=== PATIENT | female | born 1980 | race American Indian/Alaskan Native ===

== ENCOUNTER 2019-05-30 05:14 | Inpatient (IN) | payer OTHER ==
[2019-05-30] MEDS ORDERED: REGLAN IV ONE (05:26)
[2019-05-30] MEDS ORDERED: PEPCID IV ONE ×2 (05:26→14:25)
[2019-05-30] MEDS ORDERED: BICITRA PO ONE (05:26)
[2019-05-30] MEDS ORDERED: ANCEF/STERILE WATER 2 GM/20 ML 2 GM/20 ML SYRINGE IV NR ×2 (06:00→15:00)
[2019-05-30] MEDS ORDERED: PITOCin/NS 20 UNIT/1000ML DRIP 20 UNITS/1,000 ML BAG IV SCH ×2 (06:00→17:00)
[2019-05-30] MEDS: LACTATED RINGERS 1,000 ML IV SCH ×2 (06:35→13:25)
[2019-05-30 06:54] LABS: Basophils % (Auto) 0.5 % (0.0-1.8); Eosinophils # (Auto) 0.2 K/mm3 (0.0-0.4); Eosinophils % (Auto) 3.7 % (0.0-4.3); Hematocrit 34.1 % (30.3-42.9); Hemoglobin 11.6 gm/dl (10.1-14.3); Lymphocytes # (Auto) 0.8 K/mm3 (1.2-5.4); Mean Corpuscular HGB Conc 34 % (30-34); Mean Corpuscular Volume 92 fl (79-97); Monocytes # (Auto) 0.3 K/mm3 (0.0-0.8); Monocytes % (Auto) 7.1 % (0.0-7.3); Platelet Count 128 K/mm3 (140-440); Red Cell Distribution Width 15.6 % (13.2-15.2)
--- NOTE | 2019-05-30 09:00 | History and Physical Report ---
History of Present Illness Date of examination: 05/30/19 Date of admission: 05/30/19 05:14 Chief complaint: Scheduled C Section History of present illness: Pt is a 39yo BF EDC 06/04/19; EGA 39 2/7 weeks presents to L&D for a Repeat C Section with Bilateral Tubal Ligation. She received care at [facility] since 6 weeks and co-managed by [facility] for AMA and uterine fibroids. records are available and GBS is Negative. 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, herpes Social history: no significant social history, - Obstetrical History Expected Date of Delivery: 06/04/19 Actual Gestation: 39 Week(s) 2 Day(s) : 4 Medications and Allergies Allergies Allergy/AdvReac Type Severity Reaction Status Date / Time No Known Allergies Allergy Verified 05/30/19 05:26 Home Medications Medication Instructions Recorded Confirmed Last Taken Type Ferrous Sulfate [Feosol 325 MG tab] 1 tab PO BID 06/03/15 05/30/19 1 Day Ago History ~06/02/15 HYDROcodone/APAP 5-325 [Orchard 2 each PO Q6HR PRN 06/03/15 05/30/19 1 Day Ago History 5-325 mg TAB] ~06/02/15 Ibuprofen [Motrin 600 MG tab] 600 mg PO Q6HR PRN 06/03/15 05/30/19 1 Day Ago History ~06/02/15 Pnv,Calcium 72/Iron/Folic Acid 1 each PO DAILY 06/03/15 05/30/19 05/29/19 15:00 History [Pnv Plus Multivit Tab] Labetalol [Labetalol 100mg TAB] 100 mg PO BID #60 tablet 06/05/15 05/30/19 Unknown Rx Active Meds: Active Medications Oxytocin/Sodium Chloride (Pitocin/Ns 20 Unit/1000ml Drip) 20 units in 1,000 mls @ 0 mls/hr IV TITR VÍCTOR Lactated Ringer's (Lactated Ringers) 1,000 mls @ 2,250 mls/hr IV PREOP VÍCTOR Stop: 05/31/19 06:27 Last Admin: 05/30/19 06:35 Dose: 2,250 mls/hr Documented by: Review of Systems All systems: negative - Vital Signs Vital signs: Vital Signs Temp Pulse Resp BP 98.2 F 94 H 18 126/66 05/30/19 06:45 05/30/19 06:45 05/30/19 06:45 05/30/19 06:45 Temp Pulse Resp BP Pulse Ox 98.2 F 94 H 18 126/66 05/30/19 06:45 05/30/19 06:45 05/30/19 06:45 05/30/19 06:45 - Physical Exam Breasts: Positive: deferred Cardiovascular: Regular rate Lungs: Positive: Clear to auscultation Abdomen: Positive: normal appearance Genitourinary (Female): Positive: normal external genitalia Vagina: Positive: normal moisture Uterus: Positive: enlarged Extremities: Positive: normal - Obstetrical FHR: category 1 Uterine Contraction Monitor Mode: External Results Result Diagrams: 05/30/19 06:20 Abnormal lab results 05/30/19 Range/Units 06:20 RDW 15.6 H (13.2-15.2) % Plt Count 128 L (140-440) K/mm3 Lymph # 0.8 L (1.2-5.4) K/mm3 Seg Neutrophils % 71.7 H (40.0-70.0) % All other labs normal. Assessment and Plan - Patient Problems (1) 39 weeks gestation of Onset Date: 05/30/19 Current Visit: Yes Status: Acute Plan to address problem: A: IUP @ 39 2/7 weeks Previous C Section Desires permanent sterilization AMA P: Admit to L&D for Repeat C Section with Bilateral Tubal Ligation. (2) Previous section complicating Onset Date: 05/30/19 Current Visit: Yes Status: Chronic (3) Advanced maternal age (AMA) in Onset Date: 05/30/19 Current Visit: No Status: Chronic (4) Uterine fibroid in Onset Date: 05/30/19 Current Visit: Yes Status: Chronic
[2019-05-30] MEDS ORDERED: REGLAN ONE (14:24)
[2019-05-30] MEDS ORDERED: BICITRA ONE (14:24)
[2019-05-30] MEDS ORDERED: PEPCID ONE (14:24)
[2019-05-30] MEDS ORDERED: ANCEF/STERILE WATER 2 GM/20 ML 2 GM/20 ML SYRINGE IV ONE (14:25)
[2019-05-30] MEDS ORDERED: BENADRYL IV PRN (15:00)
[2019-05-30] MEDS ORDERED: ZOFRAN IV PRN (15:00)
[2019-05-30] MEDS ORDERED: DILAUDID IV PRN (15:00)
[2019-05-30] MEDS ORDERED: SODIUM CHLORIDE FLUSH SYRINGE 10 ML IV NR ×2 (15:00→17:00)
--- NOTE | 2019-05-30 15:02 | Anesthesia Consultation ---
Anesthesia Consult and Med Hx Date of service: 05/30/19 - Airway Anesthetic Teeth Evaluation: Good ROM Head & Neck: Adequate Mental/Hyoid Distance: Adequate Mallampati Class: Class II Intubation Access Assessment: Probably Good - Pulmonary Exam CTA: Yes - Cardiac Exam Cardiac Exam: RRR - Pre-Operative Health Status ASA Pre-Surgery Classification: ASA2 Proposed Anesthetic Plan: Spinal - Pulmonary Hx Smoking: No Hx Asthma: No Hx Respiratory Symptoms: No SOB: No COPD: No Home Oxygen Therapy: No Hx Pneumonia: No - Cardiovascular System Hx Hypertension: No Hx Coronary Artery Disease: No Hx Heart Attack/AMI: No Hx Angina: No Hx Percutaneous Transluminal Coronary Angioplasty (PTCA): No Hx Cardia Arrhythmia: No Hx Pacemaker: No Hx Internal Defibrillator: No Hx Valvular Heart Disease: No Hx Heart Murmur: No Hx Peripheral Vascular Disease: No - Central Nervous System Hx Neuromuscular Disorder: No Hx Seizures: No CVA: No Hx Back Pain: No Hx Psychiatric Problems: No - Gastrointestinal Hx Ulcer: No Hx Gastroesophageal Reflux Disease: No - Endocrine Hx Renal Disease: No Hx End Stage Renal Disease: No Hx Cirrhosis: No Hx Liver Disease: No Hx Insulin Dependent Diabetes: No Hx Non-Insulin Dependent Diabetes: No Hx Thyroid Disease: No Hx Hypothyroidism: No Hx Hyperthyroidism: No - Hematic Hx Anemia: Yes Hx Sickle Cell Disease: No - Other Systems Hx Alcohol Use: No Hx Substance Use: No Hx Cancer: No Hx Obesity: Yes
--- NOTE | 2019-05-30 15:02 | Anesthesia Day of Surgery ---
Anesthesia Day of Surgery - Day of Surgery Patient Examined: Yes Patient H&P Reviewed: Yes Patient is NPO: Yes Beta Blockers: No Cardiac Clearance: No Pulmonary Clearance: No Kade's Test: N/A
[2019-05-30] MEDS ORDERED: DEXMEDETOMIDINE IV ONE (15:12)
[2019-05-30] MEDS ORDERED: WATER FOR IRRIG STERILE IR ONE (15:50)
[2019-05-30] MEDS ORDERED: NACL 0.9% IR ONE (15:50)
[2019-05-30] MEDS ORDERED: ZOFRAN ONE (15:50)
[2019-05-30] MEDS ORDERED: LANSINOH TP PRN (16:42)
[2019-05-30] MEDS ORDERED: SENOKOT PO PRN (16:42)
[2019-05-30] MEDS ORDERED: NORCO 5/325 PO PRN (16:42)
[2019-05-30] MEDS ORDERED: TUCKS PAD TP PRN (16:42)
[2019-05-30] MEDS ORDERED: MYLICON PO PRN (16:42)
[2019-05-30] MEDS ORDERED: MILK OF MAGNESIA PO PRN (16:42)
[2019-05-30] MEDS ORDERED: TYLENOL PO PRN (16:42)
[2019-05-30] MEDS ORDERED: NARCAN 0.4 MG/1 ML IV PRN (16:42)
[2019-05-30] MEDS ORDERED: ANCEF/NS 1 GM/50 ML 1 GM/50 ML BAG IV SCH (17:00)
[2019-05-30] MEDS ORDERED: D5LR 1,000 ML IV SCH (17:00)
--- NOTE | 2019-05-30 17:02 | Operative Report ---
Operative Report Operative Report: Date of procedure: 05/30/2019 Pre-operative diagnosis: 1. Intrauterine at 39-2/7 weeks 2. Previ ous 3. Uterine fibroids in 4. Advanced maternal age 5. Desires permanent sterilization Post-operative diagnosis: Same Procedure name(s): 1. Repeat low transverse section 2. Bilateral tubal ligation Surgeon: Dakotah Quigley MD House Builder: None Anesthesia: Spinal anesthesia by Veronica Solorio CRNA EBL: 600 mL's Findings: A 3378 g female 8 at 1 minute 9 at 5 minutes. Clear amniotic fluid. Enlarged uterus with uterine fibroids and omental adhesions. Normal tubes and ovaries bilaterally. Procedure: After the patient was prepped and draped in usual sterile fashion, and after satisfactory level of epidural anesthesia was obtained, the skin knife was used to make a transverse skin incision through the previous skin scar. The incision was excised down to layer of the fascia, which was nicked in the midline and extended laterally using the Bovie cautery. The rectus muscles were dissected off the rectus fascia both superiorly and inferiorly. The rectus bellies in the midline, and the peritoneum was entered under direct visualization. The peritoneal incision was extended superiorly and inferiorly. A bladder flap was created and the bladder blade was then placed. The uterus was scored in a curvilinear linear fashion, entered in the midline revealing clear amniotic fluid. The infant's head was delivered onto the surgical field with aid of a vacuum, and the oropharynx and nasopharynx were bulb suctioned. The rest of the 's body was delivered, cord was doubly clamped and cut and the was handed to the waiting respiratory team. The placenta was manually removed from the uterus, and the uterus removed from its normal anatomical position. After gentle uterine lavage, the incision was inspected an d found to be without extensions. It was then closed in 2 layers using 0 Vicryl suture in a running interlocking fashion, the second layer imbricating the first. The uterus had a large pedunculated myoma at the right fundus, with extensive adhesions from the omentum. These adhesions were taken down and suture ligated. Attention was then turned to the tubal ligation. The right fallopian tube was grasped using a Denisse and the Filshie clip applied to the proximal portion of the tube. Next the left fallopian tube was grasped using a Denisse and the Filshie clip applied to the proximal portion of the tube. After good hemostasis was achieved, copious amounts or irrigation was performed, and the gutters were suctioned free of blood and blood clots. The Tisseel Sealant was sprayed across the uterine incision The uterus was then returned to its normal anatomical position, and after excellent hemostasis assured, the peritoneum was re-approximated using 3-0 Vicryl suture in a running interlocking fashion, and then the rectus muscles were re-approximated using 3-0 Vicryl suture in a [id number] configuration. The fascia was then re-approximated using 0 Vicryl suture in running interlocking fashion. The subcutaneous layer was made hemostatic using Bovie cautery, and the skin edges re-approximated using 3-0 Monocryl suture in a sub-cuticular fashion. Patient tolerated the pro cedure well was transported to recovery in stable condition.
--- NOTE | 2019-05-30 17:08 | Post Anesthesia Evaluation ---
- Post Anesthesia Evaluation Patient Participated: Yes Airway Patent: Yes Stable Respiratory Function: Yes Nausea/Vomiting: No Temp > 96.8F: Yes Pain Manageable: Yes Adequeate Hydration: Yes Anesthesia Complications: No Block Receding Appropriately: Yes Patient on Ventilator: No
[2019-05-30] MEDS: TORADOL IV PRN (19:15)
[2019-05-31] MEDS: DILAUDID IV PRN ×2 (00:27→05:19)
[2019-05-31 05:34] LABS: Hematocrit 29.3 % (30.3-42.9)
[2019-05-31] MEDS ORDERED: BOOSTRIX IM ONE (06:05)
[2019-05-31] MEDS ORDERED: ANCEF/NS 1 GM/50 ML 1 GM/50 ML BAG IV SCH (08:00)
[2019-05-31] MEDS: TORADOL IV PRN (08:10)
--- NOTE | 2019-05-31 08:10 | Progress Note ---
Assessment and Plan - Patient Problems (1) 39 weeks gestation of Onset Date: 05/30/19 Current Visit: Yes Status: Resolved (2) Previous section complicating Onset Date: 05/30/19 Current Visit: Yes Status: Resolved (3) Advanced maternal age (AMA) in Onset Date: 05/30/19 Current Visit: No Status: Chronic (4) Uterine fibroid in Onset Date: 05/30/19 Current Visit: Yes Status: Chronic (5) Status post Onset Date: 05/31/19 Current Visit: Yes Status: Resolved Plan to address problem: A: S/P Repeat C Section with BTL - POD #1 Doing well Asymptomatic anemia - stable P: Continue RPOC Anticipate discharge in 24-48hrs (6) Acute blood loss anemia Onset Date: 05/31/19 Current Visit: Yes Status: Resolved Subjective - Subjective Date of service: 05/31/19 Principal diagnosis: s/p Repeat C Section with BTL - POD #1 Interval history: Pt is feeling well without complaints. Bleeding has improved. Patient reports: appetite normal, voiding normally, pain well controlled, ambulating normally, no dizzy ambulation, no flatus, no nauseated : doing well, nursing well Objective - Vital Signs Latest vital signs: Vital Signs Temp Pulse Resp BP BP Pulse Ox 05/31/19 05:19 20 05/31/19 04:00 98.4 F 71 16 104/64 05/31/19 00:27 22 05/31/19 00:00 98.4 F 71 18 102/74 05/30/19 19:30 98.8 F 71 18 105/72 05/30/19 18:30 97.3 F L 87 18 127/77 98 05/30/19 18:00 97.8 F 57 L 18 109/68 100 05/30/19 17:45 54 L 19 111/67 100 05/30/19 17:30 60 17 105/65 99 05/30/19 17:15 61 14 113/67 99 05/30/19 17:10 56 L 16 111/70 99 05/30/19 17:05 74 16 121/69 99 05/30/19 17:00 97.6 F 76 21 88/46 99 05/30/19 10:27 96.8 F L 88 16 114/72 05/30/19 10:21 81 114/72 Intake and Output 05/30/19 05/31/19 05/31/19 22:59 06:59 14:59 Intake Total 1700 480 Output Total 400 1750 Balance 1300 -1270 Intake: IV 1400 Oral 480 Intake, Free Water 300 Output: Urine 400 1750 Indwelling Catheter 950 Void 800 Other: Total, Intake Amount 480 Total, Output Amount 400 # Voids Void 1 Estimated Blood Loss 500 - Exam Breasts: Present: deferred Abdomen: Present: normal appearance, soft Uterus: Present: normal, firm, fundal height below umbilicus Extremities: Present: normal Incision: Present: normal, dry, intact, dressed - Labs Labs: Abnormal lab results 05/31/19 Range/Units 05:06 Hgb 10.0 L (10.1-14.3) gm/dl Hct 29.3 L (30.3-42.9) % Laboratory Tests 05/30/19 05/30/19 05/30/19 06:20 06:20 06:20 WBC 4.7 RBC 3.70 Hgb 11.6 Hct 34.1 MCV 92 MCH 31 MCHC 34 RDW 15.6 H Plt Count 128 L Lymph % (Auto) 17.0 Stewart % (Auto) 7.1 Eos % (Auto) 3.7 Baso % (Auto) 0.5 Lymph # 0.8 L Stewart # 0.3 Eos # 0.2 Baso # 0.0 Seg Neutrophils % 71.7 H Seg Neutrophils # 3.4 RPR Nonreactive Blood Type B POSITIVE Antibody Screen Negative 05/31/19 05:06 WBC RBC Hgb 10.0 L Hct 29.3 L MCV MCH MCHC RDW Plt Count Lymph % (Auto) Stewart % (Auto) Eos % (Auto) Baso % (Auto) Lymph # Stewart # Eos # Baso # Seg Neutrophils % Seg Neutrophils # RPR Blood Type Antibody Screen
[2019-05-31] MEDS: PERCOCET 5/325 PO PRN ×2 (08:11→15:09)
[2019-05-31] MEDS ORDERED: PRENATAL VITAMIN PO SCH (10:00)
[2019-05-31] MEDS ORDERED: FEOSOL PO SCH (10:00)
[2019-05-31] MEDS ORDERED: M-M-R II VACCINE SUB-Q ONE (16:46)
[2019-05-31] MEDS: IBUPROFEN PO PRN (17:24)
[2019-06-01] MEDS: IBUPROFEN PO PRN ×3 (00:33→22:02)
[2019-06-01] MEDS: PERCOCET 5/325 PO PRN ×3 (00:33→16:17)
--- NOTE | 2019-06-01 07:39 | Progress Note ---
Assessment and Plan - Patient Problems (1) 39 weeks gestation of Onset Date: 05/30/19 Current Visit: Yes Status: Resolved (2) Previous section complicating Onset Date: 05/30/19 Current Visit: Yes Status: Resolved (3) Advanced maternal age (AMA) in Onset Date: 05/30/19 Current Visit: No Status: Chronic (4) Uterine fibroid in Onset Date: 05/30/19 Current Visit: Yes Status: Chronic (5) Status post Onset Date: 05/31/19 Current Visit: Yes Status: Resolved Plan to address problem: A: S/P Repeat C Section with BTL - POD #2 Doing well Asymptomatic anemia - stable P: May go home today. (6) Acute blood loss anemia Onset Date: 05/31/19 Current Visit: Yes Status: Resolved Subjective - Subjective Date of service: 06/01/19 Principal diagnosis: s/p Repeat C Section with BTL - POD #2 Interval history: Pt is feeling well without complaints. She is tolerating a reg diet without nausea or vomiting, ambulating and voiding without difficulty. Patient reports: appetite normal, voiding normally, pain well controlled, flatus, ambulating normally, no dizzy ambulation, no nauseated : doing well, nursing well Objective - Vital Signs Latest vital signs: Vital Signs Temp Pulse Resp BP BP Pulse Ox 06/01/19 06:25 18 06/01/19 01:33 18 06/01/19 00:33 18 06/01/19 00:09 98.2 F 91 H 20 118/77 100 05/31/19 16:52 97.5 F L 84 18 127/61 05/31/19 12:29 97.7 F 71 18 114/81 Intake and Output 05/31/19 06/01/19 06/01/19 22:59 06:59 14:59 Intake Total 960 240 Output Total 800 Balance 160 240 Intake: Oral 960 240 Output: Urine 800 Void 800 Other: Total, Intake Amount 240 240 Total, Output Amount 800 # Voids Void 1 1 - Exam Breasts: Present: deferred Abdomen: Present: normal appearance, soft Uterus: Present: normal, firm, fundal height below umbilicus Extremities: Present: normal Incision: Present: normal, dry, intact
--- NOTE | 2019-06-01 07:40 | Discharge Summary ---
Providers - Providers Date of Admission: 05/30/19 05:14 Date of discharge: 06/01/19 Attending physician: GILMA NAVARRO Primary care physician: GILMA NAVARRO Hospitalization Reason for admission: section, IUP at term Delivery: Procedure: section, bilateral tubal ligation, repeat low transverse Episiotomy: none Laceration: none Incision: normal, dry, intact Other procedures: none complications: none Discharge diagnosis: IUP at term delivered [place] baby: female Hospital course: Pt is a 39yo BF EDC 06/04/19; EGA 39 2/7 weeks who presented to L&D for a Repeat C Section with Bilateral Tubal Ligation. She received care at [facility] since 6 weeks and co-managed by [facility] for AMA and uterine fibroids. She underwent an uncomplicated Repeat C Section with Bilateral Tubal Ligation. By POD #2 she was tolerating a reg diet without nausea or vomiting, ambulating and voiding without difficulty. She was therefore discharged to home on POD #2 in stable condition. Condition at discharge: Good Disposition: DC-01 TO HOME OR SELFCARE - Discharge Diagnoses (1) 39 weeks gestation of Status: Resolved (2) Previous section complicating Status: Resolved (3) Advanced maternal age (AMA) in Status: Chronic (4) Uterine fibroid in Status: Chronic (5) Status post Status: Resolved (6) Acute blood loss anemia Status: Resolved Plan - Discharge Medications Prescriptions: Ferrous Sulfate [Feosol 325 MG tab] 325 mg PO BID #60 tablet Ibuprofen [Motrin] 800 mg PO Q8HR PRN #30 tablet PRN Reason: Pain, Mild (1-3) HYDROcodone/APAP 5-325 [Barre 5/325] 1 each PO Q6HR PRN #30 tablet PRN Reason: Pain Vits/Iron/Folic Acid [Select-Ob Chewable Caplet] 1 each PO DAILY #30 tab.chew - Provider Discharge Summary Activity: routine, no sex for 6 weeks, no heavy lifting 4 weeks, no strenuous exercise Diet: routine Instructions: routine Additional instructions: [] Smoking cessation referral if applicable(refer to patient education folder for contact #) [] Refer to [facility]'s [facility] Booklet Call your doctor immediately for: * Fever > 100.5 * Heavy vaginal bleeding ( >1 pad per hour) * Severe persistent headache * Shortness of breath * Reddened, hot, painful area to leg or breast * Drainage or odor from incision. * Keep incision clean and dry at all times and follow doctor's instructions regarding bathing/showering - Follow up plan Follow up: GILMA NAVARRO MD [Primary Care Provider] - 14 Days KATHY RASHEED CNM [Advanced Practice Nurse] - 14 Days
[2019-06-01 18:33] VITALS: BP 120/85
== END 2019-06-01 22:59 | disposition home or self-care (01) | DRG 784 ==
LOC: APU 05:14 → OB 18:40
PROVIDERS: ADMIT Obstetrics & Gynecology; ATTEND Obstetrics & Gynecology
PROC: 10D00Z1 Extraction of Products of Conception, Low, Open Approach (ICD-10-PCS; principal; 2019-05-30)
PROC: 0UL70CZ Occlusion of Bilateral Fallopian Tubes with Extraluminal Device, Open Approach (ICD-10-PCS; 2019-05-30)
PROC: 3E0234Z Introduction of Serum, Toxoid and Vaccine into Muscle, Percutaneous Approach (ICD-10-PCS; 2019-05-31)
DX: O34.211 Maternal care for low transverse scar from previous cesarean delivery (principal); D62 Acute posthemorrhagic anemia; O34.13 Maternal care for benign tumor of corpus uteri, third trimester; O99.62 Diseases of the digestive system complicating childbirth; O99.214 Obesity complicating childbirth; D25.9 Leiomyoma of uterus, unspecified; E66.9 Obesity, unspecified; O90.81 Anemia of the puerperium; K66.0 Peritoneal adhesions (postprocedural) (postinfection); Z23 Encounter for immunization; Z3A.39 39 weeks gestation of pregnancy; Z37.0 Single live birth
CPT/HCPCS: 36415; 85014; 85018; 85025; 86592; 86850; 86900; 86901; 90471; 90715; G0378; C9250; J0690; J1170; J1885; J2405; J2590; J2765; J3490; J7120; J7121

== ENCOUNTER 2019-06-04 19:37 | Inpatient (IN) | payer OTHER ==
--- NOTE | 2019-06-04 20:08 | Emergency Department Report ---
Blank Doc - Documentation Documentation: This is a 39-year-old female post-op from that presents with chest p ain, shortness of breathe, and bnilateral leg swellngs. This initial assessment/diagnostic orders/clinical plan/treatment(s) is/are subject to change based on patient's health status, clinical progression and re- assessment by fellow clinical providers in the ED. Further treatment and workup at subsequent clinical providers discretion. Patient/guardians urged not to elope from the ED as their condition may be serious if not clinically assessed and managed. Initial orders include: 1- Patient sent to MAIN ED for further evaluation and treatment 2- labs 3- EKG 4- CXR
[2019-06-04 20:39] LABS: Basophils % (Auto) 0.6 % (0.0-1.8); Eosinophils # (Auto) 0.3 K/mm3 (0.0-0.4); Eosinophils % (Auto) 7.7 % (0.0-4.3); Hematocrit 28.6 % (30.3-42.9); Hemoglobin 9.6 gm/dl (10.1-14.3); Lymphocytes # (Auto) 0.9 K/mm3 (1.2-5.4); Lymphocytes % (Auto) 23.3 % (13.4-35.0); Mean Corpuscular HGB Conc 34 % (30-34); Mean Corpuscular Volume 94 fl (79-97); Monocytes # (Auto) 0.2 K/mm3 (0.0-0.8); Platelet Count 157 K/mm3 (140-440); Red Blood Count 3.06 M/mm3 (3.65-5.03)
--- NOTE | 2019-06-04 20:43 | XRay Report ---
CHEST PA AND LATERAL VIEWS INDICATION: Chest Pain. COMPARISON: None FINDINGS: Support devices: None Heart: Normal Lungs/Pleura: No acute pulmonary or pleural findings. IMPRESSION: 1. No significant abnormality. Signer Name: Jayant Lopez MD Signed: 06/04/2019 8:39 PM Workstation Name: [id number]
[2019-06-04 20:48] LABS: INR 1.05 (0.87-1.13)
[2019-06-04 20:49] LABS: Partial Thromboplastin Time 30.9 Sec. (24.2-36.6)
[2019-06-04 21:04] LABS: Alanine Aminotransferase 19 units/L (7-56); Albumin 3.1 g/dL (3.9-5); BUN/Creatinine Ratio 16; Blood Urea Nitrogen 11 mg/dL (7-17); Calcium 8.3 mg/dL (8.4-10.2); Hemolysis Index 33
[2019-06-04] MEDS ORDERED: APRESOLINE IV ONE (21:31)
[2019-06-04] MEDS ORDERED: MAGNESIUM SULFATE 2GM/50ML 2 GM/50 ML BAG IV ONE ×2 (21:34→21:43)
[2019-06-04] MEDS ORDERED: APRESOLINE ONE (21:43)
[2019-06-04] MEDS ORDERED: ZOFRAN IV ONE (21:55)
[2019-06-04] MEDS ORDERED: MORPHINE IV ONE (21:55)
[2019-06-04] MEDS ORDERED: ZOFRAN ONE (22:00)
[2019-06-04] MEDS ORDERED: MORPHINE ONE (22:00)
[2019-06-04] MEDS ORDERED: MORPHINE IV PRN (22:19)
[2019-06-04] MEDS ORDERED: ZOFRAN IV PRN (22:19)
--- NOTE | 2019-06-04 22:56 | Emergency Department Report ---
ED General Adult HPI - General Chief complaint: Chest Pain Stated complaint: C SECTION COMPLICATION Time Seen by Provider: 06/04/19 20:07 Source: patient Mode of arrival: Ambulatory Limitations: No Limitations - History of Present Illness Initial comments: Mrs. Du is a 39-year-old female who is 5 days status post schedule section. She did not have any complications during this . This was a scheduled section at 39 weeks gestation. She delivered baby by section on Tuesday. She was discharged from hospital Tuesday just 3 days ago. On Tuesday she developed bilateral leg swelling. Within the last day she developed mild global headache chest tightness and shortness of breath. She feels as if a fist is squeezing her heart. She developed preeclampsia in the period during her previous . This is her fourth . 2 vaginal deliveries. 2 sections. She denies abdominal pain. She denies shortness of breath. -: Gradual (3) Location: head, chest, left, right, upper extremity, lower extremity Severity scale (0 -10): 2 Quality: other (tightness squeezing) Consistency: constant Improves with: none Worsens with: none Associated Symptoms: headaches, shortness of breath, other (chest pain radiates to her back, bilateral leg swelling) Treatments Prior to Arrival: none - Related Data Previous Rx's Medication Instructions Recorded Last Taken Type HYDROcodone/APAP 5-325 [[place] 1 each PO Q6HR PRN #30 tablet 05/30/19 Unknown Rx 5/325] Ibuprofen [Motrin] 800 mg PO Q8HR PRN #30 tablet 05/30/19 Unknown Rx Vits/Iron/Folic Acid 1 each PO DAILY #30 tab.chew 05/30/19 Unknown Rx [Select-Ob Chewable Caplet] Allergies Allergy/AdvReac Type Severity Reaction Status Date / Time No Known Allergies Allergy Verified 05/30/19 05:26 ED Review of Systems ROS: Stated complaint: C SECTION COMPLICATION Other details as noted in HPI Comment: All other systems reviewed and negative Constitutional: malaise Cardiovascular: chest pain, edema Gastrointestinal: denies: abdominal pain Neurological: headache ED Past Medical Hx - Past Medical History Previous Medical History?: Yes Hx Hypertension: No Hx Heart Attack/AMI: No Hx Congestive Heart Failure: No Hx Diabetes: No Hx Deep Vein Thrombosis: No Hx Liver Disease: No Hx Renal Disease: No Hx Sickle Cell Disease: No Hx Seizures: No Hx Asthma: No Hx COPD: No Hx HIV: No Additional medical history: Preeclampsia - Surgical History Past Surgical History?: Yes Hx Pacemaker: No Hx Internal Defibrillator: No Additional Surgical History: c section x 2 - Social History Smoking Status: Former Smoker Substance Use Type: None - Medications Home Medications: Home Medications Medication Instructions Recorded Confirmed Last Taken Type HYDROcodone/APAP 5-325 [[place] 1 each PO Q6HR PRN #30 tablet 05/30/19 06/05/19 Unknown Rx 5/325] Ibuprofen [Motrin] 800 mg PO Q8HR PRN #30 tablet 05/30/19 06/05/19 Unknown Rx Vits/Iron/Folic Acid 1 each PO DAILY #30 tab.chew 05/30/19 06/05/19 Unknown Rx [Select-Ob Chewable Caplet] ED Physical Exam - General Limitations: No Limitations General appearance: alert, in no apparent distress - Head Head exam: Present: atraumatic, normocephalic - Eye Eye exam: Present: normal appearance - ENT ENT exam: Present: mucous membranes moist - Neck Neck exam: Present: normal inspection, full ROM - Respiratory Respiratory exam: Present: normal lung sounds bilaterally. Absent: respiratory distress, wheezes, rales, rhonchi - Cardiovascular Cardiovascular Exam: Present: normal rhythm, bradycardia, normal heart sounds. Absent: systolic murmur, diastolic murmur, rubs, gallop - GI/Abdominal GI/Abdominal exam: Present: soft, normal bowel sounds. Absent: distended, tenderness, guarding, rebound - Extremities Exam Extremities exam: Present: other (tense nonpitting edema from the foot to knee) - Back Exam Back exam: Present: normal inspection - Neurological Exam Neurological exam: Present: alert, oriented X3 - Psychiatric Psychiatric exam: Present: normal affect, normal mood - Skin Skin exam: Present: warm, dry, intact, normal color. Absent: rash ED Course Vital Signs 06/04/19 06/04/19 06/04/19 19:58 21:15 21:46 Temperature 98.2 F 98.0 F Pulse Rate 45 L 43 L 46 L Respiratory 18 16 Rate Blood Pressure 175/88 168/87 Blood Pressure 160/80 [Left] O2 Sat by Pulse 88 99 Oximetry 06/04/19 06/04/19 06/04/19 22:00 22:30 23:00 Temperature Pulse Rate 54 L Respiratory 18 18 13 Rate Blood Pressure Blood Pressure 142/81 [Left] O2 Sat by Pulse 97 Oximetry 06/04/19 06/05/19 23:27 00:10 Temperature Pulse Rate 55 L 51 L Respiratory 13 Rate Blood Pressure 143/75 Blood Pressure 135/83 [Left] O2 Sat by Pulse 99 Oximetry ED Medical Decision Making - Lab Data Result diagrams: 06/04/19 20:15 06/04/19 20:15 Laboratory Results - last 24 hr 06/04/19 06/04/19 06/04/19 20:15 20:15 20:15 WBC 3.7 L RBC 3.06 L Hgb 9.6 L Hct 28.6 L MCV 94 MCH 31 MCHC 34 RDW 15.0 Plt Count 157 Lymph % (Auto) 23.3 [place] % (Auto) 6.0 Eos % (Auto) 7.7 H Baso % (Auto) 0.6 Lymph # 0.9 L [place] # 0.2 Eos # 0.3 Baso # 0.0 Seg Neutrophils % 62.4 Seg Neutrophils # 2.3 PT 13.4 INR 1.05 APTT 30.9 D-Dimer 7311.85 H Sodium 141 Potassium 4.4 Chloride 105.3 Carbon Dioxide 24 Anion Gap 16 BUN 11 Creatinine 0.7 Estimated GFR > 60 BUN/Creatinine Ratio 16 Glucose 88 Calcium 8.3 L Total Bilirubin 0.40 AST 27 ALT 19 Alkaline Phosphatase 116 Troponin T < 0.010 Total Protein 6.3 Albumin 3.1 L Albumin/Globulin Ratio 1.0 - EKG Data 06/04/19 22:57 EKG obtained 1950 Sinus bradycardia rate 45 beats minute normal axis normal intervals no ST-T si gns ischemia normal EKG with the exception of bradycardia - Radiology Data Radiology results: report reviewed Chest Radiograph: No acute process no edema no infiltrate according to radiology report CTA negative for PE +lung nodule 6 mm - Medical Decision Making Mrs. Du presents with preeclampsia. Treated with magnesium and hydralazine. I spoke with Dr. Thacker OB cosmetics demonstrator for Dr. Quigley. Dr. Verdugo recommended hospi talist consultation. I consult the hospitalist Dr. Monae who evaluated Mrs. Du [id number] and emergency department. Blood pressure improved to 138/80 with 10 mg IV hydralazine. Heart rate increased to 65 bpm after blood pressure medication administered. SBP has been below 140 mm Hg after management provided by myself and Dr. Young hospitalist. Dr. Thacker will admit to L&D labs notable for mild anemia, elevated d-dimer Critical Care Time: Yes Critical care attestation.: If time is entered above; I have spent that time in minutes in the direct care of this critically ill patient, excluding procedure time. 40 minutes of critical care time scooting procedures were used. Concerned for bradycardia. Concerned for risk of seizure. Mrs. Du require several assessment intervention. I spoke with multiple consultants. ED Disposition Clinical Impression: Preeclampsia, Hypertensive emergency, Lung nodule Disposition: OP ADMIT IP TO THIS HOSP Is pt being admited?: Yes Does the pt Need Aspirin: No
[2019-06-04] MEDS ORDERED: NITRO-BID 2% TP ONE (23:24)
[2019-06-04] MEDS: NITRO-BID 2% TP SCH (23:27)
[2019-06-04 23:29] LABS: Uric Acid 4.7 mg/dL (3.5-7.6)
[2019-06-05] MEDS ORDERED: MAGNESIUM SULFATE 2GM/50ML 2 GM/50 ML BAG IV ONE ×2 (00:35→01:26)
[2019-06-05 00:40] LABS: Bilirubin,Urine Negative (Negative)
[2019-06-05 00:41] LABS: Blood,Urine Moderate (Negative)
[2019-06-05] MEDS ORDERED: APRESOLINE IV STA (00:41)
[2019-06-05 00:42] LABS: Protein,Urine <15 mg/dL mg/dL (Negative)
[2019-06-05 00:44] LABS: Bacteria,Urine 1+ /HPF (Negative); Color,Urine Colorless (Yellow); Ictotest,Urine Negative (Negative); Mucus,Urine FEW /HPF
[2019-06-05 01:06] LABS: Creatine Kinase MB 1.7 ng/mL (0.0-4.0)
[2019-06-05] MEDS ORDERED: APRESOLINE ONE (01:26)
[2019-06-05] MEDS ORDERED: ZOFRAN ONE (01:55)
[2019-06-05] MEDS ORDERED: MORPHINE ONE ×2 (01:56→07:12)
[2019-06-05] MEDS ORDERED: MORPHINE IV ONE (02:00)
[2019-06-05] MEDS ORDERED: TYLENOL PO ONE (02:36)
[2019-06-05] MEDS ORDERED: LACTATED RINGERS 1,000 ML ONE (03:03)
[2019-06-05] MEDS ORDERED: MAGNESIUM SULFATE 40GM/1000ML 40 GM/1,000 ML BAG IV ONE (03:04)
[2019-06-05] MEDS: MAGNESIUM SULFATE 40GM/1000ML 40 GM/1,000 ML BAG IV SCH (03:18)
[2019-06-05] MEDS ORDERED: LANSINOH TP PRN (03:58)
[2019-06-05] MEDS ORDERED: NARCAN 0.4 MG/1 ML IV PRN (03:58)
[2019-06-05] MEDS ORDERED: SODIUM CHLORIDE FLUSH SYRINGE 10 ML IV NR (04:00)
[2019-06-05] MEDS ORDERED: TYLENOL PO PRN (04:07)
[2019-06-05] MEDS ORDERED: NORCO 5/325 ONE (04:18)
[2019-06-05] MEDS: NORCO 5/325 PO PRN ×2 (04:20→18:16)
[2019-06-05 04:58] LABS: Bilirubin,Urine NEG (Negative); Blood,Urine NEG (Negative); Color,Urine Colorless (Yellow); Protein,Urine <15 mg/dL mg/dL (Negative); Urobilinogen,Urine < 2.0 mg/dL (<2.0); WBC,Urine < 1.0 /HPF (0.0-6.0)
[2019-06-05] MEDS ORDERED: LACTATED RINGERS 1,000 ML IV SCH (05:00)
[2019-06-05 05:44] LABS: Creatine Kinase MB 1.4 ng/mL (0.0-4.0)
[2019-06-05 05:45] LABS: Alanine Aminotransferase 18 units/L (7-56)
[2019-06-05] MEDS: NITRO-BID 2% TP SCH (06:00)
--- NOTE | 2019-06-05 08:51 | History and Physical Report ---
History of Present Illness Date of examination: 06/05/19 Date of admission: 06/05/19 00:42 Chief complaint: C/O chest pain, swollen legs and difficulty breathing 6 days post section. History of present illness: Mrs. Du is a 39-year-old 6days post an elective section at 39 wks. She did not have any complications during this . She delivered baby by section on Tuesday. She was discharged from hospital Tuesday just 3 days ago. On Tuesday she developed bilateral leg swelling. On Tuesday she worsened as she developed headaches, chest pain and shortness of breath. She felt pressure in her chest as her heart beat. She had preeclampsia in the period during her previous . This is her fourth . 2 vaginal deliveries. 2 sections. She denies abdominal pain. She denies shortness of breath and was resting comfortably this morning. Past History Past Medical History: denies: hypertension, lung disease - Obstetrical History : 4 Medications and Allergies Allergies Allergy/AdvReac Type Severity Reaction Status Date / Time No Known Allergies Allergy Verified 05/30/19 05:26 Home Medications Medication Instructions Recorded Confirmed Last Taken Type HYDROcodone/APAP 5-325 [[place] 1 each PO Q6HR PRN #30 tablet 05/30/19 06/05/19 Unknown Rx 5/325] Ibuprofen [Motrin] 800 mg PO Q8HR PRN #30 tablet 05/30/19 06/05/19 Unknown Rx Vits/Iron/Folic Acid 1 each PO DAILY #30 tab.chew 05/30/19 06/05/19 Unknown Rx [Select-Ob Chewable Caplet] Active Meds: Active Medications Acetaminophen (Tylenol) 650 mg PO Q4H PRN PRN Reason: Headache Acetaminophen/Hydrocodone Bitart ([place] 5/325) 2 each PO Q6H PRN PRN Reason: Pain, Moderate (4-6) Last Admin: 06/05/19 04:20 Dose: 2 each Documented by: Aspirin (Aspirin) 325 mg PO QDAY [facility] Hydralazine HCl (Apresoline) 10 mg PO QID [facility] Magnesium Sulfate (Magnesium Sulfate 40gm/1000ml) 40 gm in 1,000 mls @ 50 ml s/hr IV DIRECT [facility] Last Admin: 06/05/19 03:18 Dose: 2 gm/hr, 50 mls/hr Documented by: Lactated Ringer's (Lactated Ringers) 1,000 mls @ 75 mls/hr IV DIRECT [facility]CTOR Last Admin: 06/05/19 03:18 Dose: 75 mls/hr Documented by: Morphine Sulfate (Morphine) 2 mg IV Q4H PRN PRN Reason: Pain, Moderate (4-6) Last Admin: 06/05/19 07:12 Dose: 2 mg Documented by: Multi-Ingredient Ointment (Lansinoh) 1 applic TP PRN PRN PRN Reason: dryness/cracking Naloxone HCl (Narcan 0.4 Mg/1 Ml) 0.1 mg IV Q2MIN PRN PRN Reason: Res Rate </= 8 or 02 SAT < 92% Nitroglycerin (Nitro-Bid 2%) 0.5 inch TP QIDNTG [facility]; Protocol Last Admin: 06/05/19 06:00 Dose: Not Given Documented by: Ondansetron HCl (Zofran) 4 mg IV Q8H PRN PRN Reason: Nausea And Vomiting Last Admin: 06/05/19 02:00 Dose: 4 mg Documented by: Sodium Chloride (Sodium Chloride Flush Syringe 10 Ml) 10 ml IV PRN NR Stop: 06/06/19 03:59 Review of Systems All systems: negative - Vital Signs Vital signs: Vital Signs Temp Pulse Resp BP Pulse Ox 98.2 F 45 L 18 175/88 88 06/04/19 19:58 06/04/19 19:58 06/04/19 19:58 06/04/19 19:58 06/04/19 19:58 Temp Pulse Resp BP Pulse Ox 97.0 F L 70 18 133/78 97 06/05/19 08:25 06/05/19 08:25 06/05/19 08:25 06/05/19 08:25 06/05/19 06:30 - Physical Exam Breasts: Positive: deferred Lungs: Positive: Clear to auscultation Abdomen: Positive: soft. Negative: tenderness Results Result Diagrams: 06/04/19 20:15 06/05/19 04:46 Abnormal lab results 06/04/19 06/04/19 06/04/19 Range/Units 20:15 20:15 20:15 WBC 3.7 L (4.5-11.0) K/mm3 RBC 3.06 L (3.65-5.03) M/mm3 Hgb 9.6 L (10.1-14.3) gm/dl Hct 28.6 L (30.3-42.9) % Eos % (Auto) 7.7 H (0.0-4.3) % Lymph # 0.9 L (1.2-5.4) K/mm3 D-Dimer 7311.85 H (0-234) ng/mlDDU Calcium 8.3 L (8.4-10.2) mg/dL Lactate Dehydrogenase (91-180) units/L NT-Pro-B Natriuret Pep (0-450) pg/mL Albumin 3.1 L (3.9-5) g/dL Urine Blood (Negative) 06/04/19 06/04/19 06/05/19 Range/Units 23:00 Unknown 04:46 WBC (4.5-11.0) K/mm3 RBC (3.65-5.03) M/mm3 Hgb (10.1-14.3) gm/dl Hct (30.3-42.9) % Eos % (Auto) (0.0-4.3) % Lymph # (1.2-5.4) K/mm3 D-Dimer (0-234) ng/mlDDU Calcium (8.4-10.2) mg/dL Lactate Dehydrogenase 227 H (91-180) units/L NT-Pro-B Natriuret Pep 459.5 H (0-450) pg/mL Albumin (3.9-5) g/dL Urine Blood Moderate A (Negative) All other labs normal. Chest x-ray: report reviewed Assessment and Plan - Patient Problems (1) Hypertensive emergency Current Visit: Yes Status: Acute Plan to address problem: Patient was started on MgSO4 and hydrallazine, and ntro patches. Due to bradycardia labetalol was not used. (2) Lung nodule Current Visit: Yes Status: Acute Plan to address problem: For cardiology consulted. (3) Preeclampsia Current Visit: Yes Status: Acute Plan to address problem: Patient was started on MgSO4 and hydrallazine, and ntro patches. Due to bradycardia labetalol was not used. [facility] labs reviewed. D Dimer results unuseful, noted.
[2019-06-05] MEDS: ASPIRIN PO SCH (10:02)
[2019-06-05] MEDS: APRESOLINE PO SCH ×4 (10:02→21:50)
--- NOTE | 2019-06-05 10:04 | Consultation ---
CONSULT REQUESTED BY: Dr. Lauren. REASON FOR CONSULT: Bradycardia in a patient with eclampsia. HISTORY OF PRESENT ILLNESS: The patient is a 39-year-old female who delivered her fourth child few days ago and was diagnosed with eclampsia and getting treatment for elevated blood pressure, but continued to have low heart rate running in the 40s. Also, the patient complained about retrosternal chest pain that appears as tightness in nature, does not radiate and was associated with some shortness of breath. There is no history of nausea or vomiting. There is also no history of diaphoresis.Patient is scheduled to have CTA done as soon as the Cat Scan equipment is repaired. PAST MEDICAL HISTORY: Pertinent for preeclampsia in the past. PAST SURGICAL HISTORY: Pertinent for . FAMILY HISTORY: Noncontributory. SOCIAL HISTORY: The patient is a former cigarette smoker who drinks alcohol occasionally and does not use illicit drugs. MEDICATIONS: The patient is on [place] 5/325 mg 1 by mouth every 6 hours as needed for pain and ibuprofen 800 mg by mouth every 8 hours as needed for pain. The patient is also on tablets 1 chewed daily. ALLERGIES: There are no known drug allergies. REVIEW OF SYSTEMS: CONSTITUTIONAL: There is no fever, no chills, no diaphoresis. HEENT: There is no headache or sore throat. CARDIOVASCULAR SYSTEM: There is chest pain, but no orthopnea. RESPIRATORY SYSTEM: There is shortness of breath and no cough. GASTROINTESTINAL SYSTEM: There is no nausea, no vomiting, no abdominal pain, diarrhea or constipation. NEUROLOGICAL SYSTEM: There is no numbness, no dizziness, no altered mental status. MUSCULOSKELETAL SYSTEM: There is no joint pain, but there is swelling in the ankle. DERMATOLOGICAL SYSTEM: There is no skin rash or itching. GENITOURINARY SYSTEM: There is no dysuria or hematuria or flank pain. Rest of system review is normal. PHYSICAL EXAMINATION: GENERAL: At the time of exam, the patient was found to be alert, oriented x 3 and in mild distress due to retrosternal chest pain. VITAL SIGNS: Shows temperature of 98.2 degrees Fahrenheit, pulse of 45, respirations 18, blood pressure 175/88, O2 sat of 88% on room air. HEENT: Shows pupils to be equal, round, reactive to light and accommodating. Extraocular muscles are intact. NECK: Supple with no JVD or carotid bruit. CARDIOVASCULAR SYSTEM: Showed normal first and second heart sounds with no gallops or murmur and the patient has 1-2+ pitting edema. RESPIRATORY SYSTEM: Show good air entry on both sides of the lungs with no abnormal breath sounds. GASTROINTESTINAL SYSTEM: Show abdomen to be full, soft, nontender with no organomegaly or rigidity. NEUROLOGICAL: Shows no focal deficit. MUSCULOSKELETAL SYSTEM: Show swelling in the ankle areas, but no joint tenderness. DERMATOLOGICAL SYSTEM: Show no skin rash. GENITOURINARY SYSTEM: Showing no costovertebral angle tenderness. PERTINENT LABORATORY DATA AND IMAGING STUDIES: The patient has CBC done with low white count of 3700, low hemoglobin of 9.6 and low hematocrit level of 28.6 with CBC differential showing elevated eosinophil count of 7.7%. The patient's coagulations studies show very high D-dimer level of 7311 and the patient's chemistry show low calcium level of 8.3 with correspondingly low albumin level of 3.1. The patient's brain natriuretic peptide level is elevated with a value of 459 and troponin level came back normal. The patient's urinalysis show moderate blood in the urine, otherwise unremarkable. IMAGING STUDIES: The patient had chest x-ray done that shows no significant abnormality and the patient had CT angiogram of the chest ordered and pending. DIAGNOSES: 1. bradycardia. 2. Chest pain. PLAN OF CARE: 1. The patient is already admitted by the obstetrical doctor. 2. The patient will have serial cardiac enzymes involving troponin, total CK, and CK-MB checked every 6 hours because of chest pain and bradycardia. 3. The patient will have 2D echo done this morning. 4. The patient will have Cardiology consult with Dr. Juan Camacho because of chest pain with bradycardia in a patient. 5. The patient will be on aspirin 325 mg by mouth daily and will be on IV morphine 2 mg every 4 hours as needed for pain. Also, the patient will be on nitro paste half inch to anterior chest wall q.i.d. and will be on IV Zofran 4 mg every 8 hours as needed for nausea and vomiting. 6. The patient will be on Tylenol 650 mg by mouth every 4 hours as needed for fever and headache. 7. Further managment of the patient's chest pain will be determined by the results of the CT angiogram and Cardiology consult. 8. The patient will remain n.p.o. until seen by the development educator. 9. The patient will continue the orders put in by the scalehouse attendant. JOB# [id number] OCN/BECKY MTDD
--- NOTE | 2019-06-05 14:32 | Consultation ---
History of Present Illness Consult date: 06/05/19 Consult reason: bradycardia History of present illness: Patient is a 39-year old woman 6 days post section. She was discharged from hospital 3 days ago, returns with complaints of headaches, chest pain and shortness of breath. Noted hypertensive with a systolic blood pressure 175 on presentation. Chest x-ray was normal and a chest CTA is reported as negative for PE but evidence of lung nodule measuring 6 mm. Cardiac enzymes were normal. An ECG is sinus bradycardia, otherwise no acute ischemic changes. Today, patient denies chest pain and shortness of breath but headaches continues. Patient denies any complications during her . Blood pressure is currently stable at 128/79. Medications and Allergies Allergies Allergy/AdvReac Type Severity Reaction Status Date / Time No Known Allergies Allergy Verified 05/30/19 05:26 Home Medications Medication Instructions Recorded Confirmed Last Taken Type HYDROcodone/APAP 5-325 [[place] 1 each PO Q6HR PRN #30 tablet 05/30/19 06/05/19 Unknown Rx 5/325] Ibuprofen [Motrin] 800 mg PO Q8HR PRN #30 tablet 05/30/19 06/05/19 Unknown Rx Vits/Iron/Folic Acid 1 each PO DAILY #30 tab.chew 05/30/19 06/05/19 Unknown Rx [Select-Ob Chewable Caplet] Active Meds: Active Medications Acetaminophen (Tylenol) 650 mg PO Q4H PRN PRN Reason: Headache Acetaminophen/Hydrocodone Bitart ([place] 5/325) 2 each PO Q6H PRN PRN Reason: Pain, Moderate (4-6) Last Admin: 06/05/19 04:20 Dose: 2 each Documented by: Aspirin (Aspirin) 325 mg PO QDAY [facility] Last Admin: 06/05/19 10:02 Dose: 325 mg Documented by: Hydralazine HCl (Apresoline) 10 mg PO QID [facility] Last Admin: 06/05/19 10:02 Dose: 10 mg Documented by: Magnesium Sulfate (Magnesium Sulfate 40gm/1000ml) 40 gm in 1,000 mls @ 50 mls/hr IV DIRECT VÍCTOR Last Admin: 06/05/19 03:18 Dose: 2 gm/hr, 50 mls/hr Documented by: Lactated Ringer's (Lactated Ringers) 1,000 mls @ 75 mls/hr IV DIRECT VÍCTOR Last Admin: 06/05/19 03:18 Dose: 75 mls/hr Documented by: Morphine Sulfate (Morphine) 2 mg IV Q4H PRN PRN Reason: Pain, Moderate (4-6) Last Admin: 06/05/19 07:12 Dose: 2 mg Documented by: Multi-Ingredient Ointment (Lansinoh) 1 applic TP PRN PRN PRN Reason: dryness/cracking Naloxone HCl (Narcan 0.4 Mg/1 Ml) 0.1 mg IV Q2MIN PRN PRN Reason: Res Rate </= 8 or 02 SAT < 92% Nitroglycerin (Nitro-Bid 2%) 0.5 inch TP QIDNTG [facility]; Protocol Last Admin: 06/05/19 06:00 Dose: Not Given Documented by: Ondansetron HCl (Zofran) 4 mg IV Q8H PRN PRN Reason: Nausea And Vomiting Last Admin: 06/05/19 02:00 Dose: 4 mg Documented by: Sodium Chloride (Sodium Chloride Flush Syringe 10 Ml) 10 ml IV PRN NR Stop: 06/06/19 03:59 Physical Examination Vital Signs Temp Pulse Resp BP Pulse Ox 98.2 F 45 L 18 175/88 88 06/04/19 19:58 06/04/19 19:58 06/04/19 19:58 06/04/19 19:58 06/04/19 19:58 General appearance: no acute distress HEENT: Positive: PERRL Neck: Positive: trachea midline Cardiac: Positive: Reg Rate and Rhythm Lungs: Positive: Decreased Breath Sounds Neuro: Positive: Grossly Intact Extremities: Absent: edema Results 06/04/19 20:15 06/05/19 04:46 Cardiac Enzymes 06/04/19 06/05/19 06/05/19 Range/Units 20:15 00:17 04:46 AST 27 (5-40) units/L Lactate Dehydrogenase (91-180) units/L CK-MB (CK-2) 1.7 1.4 (0.0-4.0) ng/mL 06/05/19 Range/Units 04:46 AST 22 (5-40) units/L Lactate Dehydrogenase 227 H (91-180) units/L CK-MB (CK-2) (0.0-4.0) ng/mL Coagulation 06/04/19 Range/Units 20:15 PT 13.4 (12.2-14.9) Sec. INR 1.05 (0.87-1.13) APTT 30.9 (24.2-36.6) Sec. CBC 06/04/19 Range/Units 20:15 WBC 3.7 L (4.5-11.0) K/mm3 RBC 3.06 L (3.65-5.03) M/mm3 Hgb 9.6 L (10.1-14.3) gm/dl Hct 28.6 L (30.3-42.9) % Plt Count 157 (140-440) K/mm3 Lymph # 0.9 L (1.2-5.4) K/mm3 [place] # 0.2 (0.0-0.8) K/mm3 Eos # 0.3 (0.0-0.4) K/mm3 Baso # 0.0 (0.0-0.1) K/mm3 Comprehensive Metabolic Panel 06/04/19 06/05/19 Range/Units 20:15 04:46 Sodium 141 (137-145) mmol/L Potassium 4.4 (3.6-5.0) mmol/L Chloride 105.3 (98-107) mmol/L Carbon Dioxide 24 (22-30) mmol/L BUN 11 (7-17) mg/dL Creatinine 0.7 0.7 (0.7-1.2) mg/dL Glucose 88 (65-100) mg/dL Calcium 8.3 L (8.4-10.2) mg/dL AST 27 22 (5-40) units/L ALT 19 18 (7-56) units/L Alkaline Phosphatase 116 (35-129) units/L Total Protein 6.3 (6.3-8.2) g/dL Albumin 3.1 L (3.9-5) g/dL Assessment and Plan Hypertension, better Status post recent Chest pain no acute ischemic changes on an ECG cardiac enzymes are normal Chest CTA is reported as negative for PE but evidence of lung nodule measuring 6 mm. We will discontinue nitro patch due to ongoing headaches. An echocardiogram will be obtained for LVEF assessment.
--- NOTE | 2019-06-05 17:44 | Progress Note ---
Assessment and Plan - Patient Problems (1) Pre-eclampsia affecting puerperium Current Visit: Yes Status: Acute Plan to address problem: Continue Mg sulfate for 24 hrs. Monitor Mg levels, urine output, DTRs. Monitor BP. Anti-HTN for BP control. (2) S/P section Current Visit: Yes Status: Acute Plan to address problem: Routine post op care. (3) Anemia Current Visit: Yes Status: Acute Qualifiers: Anemia type: iron deficiency (4) Sinusitis Current Visit: Yes Status: Acute Plan to address problem: Augmentin BID. (5) Chest pain Current Visit: Yes Status: Acute Plan to address problem: Patient is asymptomatic now. Echo result is pending. Machinist Job Setter to review result. Subjective - Subjective Date of service: 06/05/19 Interval history: Patient is a 39-year-old, , who is S/P repeat section 6 days ago at 39 wks. She did not have any complications during this . She was discharged from hospital Tuesday just 3 days ago. On Tuesday she developed bilateral leg swelling. On Tuesday she worsened as she developed headaches, chest pain and shortness of breath. She felt pressure in her chest as her heart beats. She had preeclampsia in the period during her previous . On admission, her BP was 175/88. She was treated with magnesium sulfate and IV hydralazine and labetolol was given later for BP control. Labetolol has been discontinued. Hb/Hct were 9.6/28.6. EKG showed sinus tachycardia. Cardiac enzymes were negative. Chest CT was negative for PE. Cardiology consult was called. Today, she denies any chest pain or SOB. But, she reports nasal congestion and facial headache. Objective - Vital Signs Latest vital signs: Vital Signs Temp Pulse Resp BP BP Pulse Ox 06/05/19 17:33 80 100 06/05/19 17:28 80 136/83 99 06/05/19 17:23 75 99 06/05/19 17:18 68 98 06/05/19 17:13 72 97 06/05/19 17:08 72 98 06/05/19 17:03 72 99 06/05/19 16:58 68 140/77 98 06/05/19 16:53 80 97 06/05/19 16:48 76 99 06/05/19 16:43 65 98 06/05/19 16:38 63 97 06/05/19 16:33 61 98 06/05/19 16:28 65 128/80 98 06/05/19 16:23 65 98 06/05/19 16:18 66 98 06/05/19 16:13 64 97 06/05/19 16:08 68 99 06/05/19 16:03 63 98 06/05/19 15:58 62 124/73 98 06/05/19 15:53 60 98 06/05/19 15:48 61 97 06/05/19 15:43 81 97 06/05/19 15:38 66 97 06/05/19 15:33 66 98 06/05/19 15:28 64 153/78 96 06/05/19 15:23 65 97 06/05/19 15:18 69 99 06/05/19 15:13 69 98 06/05/19 15:12 82 125/78 06/05/19 15:08 64 97 06/05/19 15:03 65 97 06/05/19 14:58 76 125/78 97 06/05/19 14:53 67 96 06/05/19 14:48 67 97 06/05/19 14:43 68 96 06/05/19 14:38 63 96 06/05/19 14:33 64 98 06/05/19 14:28 64 120/74 98 06/05/19 14:23 64 97 06/05/19 14:18 62 98 06/05/19 14:13 62 98 06/05/19 14:08 68 97 06/05/19 14:03 66 97 06/05/19 13:58 65 141/73 97 06/05/19 13:53 58 L 97 06/05/19 13:48 79 99 06/05/19 13:43 65 97 06/05/19 13:38 77 99 06/05/19 13:33 75 98 06/05/19 13:28 61 131/77 98 06/05/19 13:23 59 L 98 06/05/19 13:18 64 99 06/05/19 13:13 64 97 06/05/19 13:08 69 99 06/05/19 13:07 71 128/79 06/05/19 13:03 63 97 06/05/19 12:58 77 99 06/05/19 12:53 61 97 06/05/19 12:49 96 H 0 L 06/05/19 12:48 83 98 06/05/19 12:43 89 97 06/05/19 12:38 66 98 06/05/19 12:33 60 99 06/05/19 12:28 78 136/82 98 06/05/19 12:23 84 95 06/05/19 12:18 68 97 06/05/19 12:13 73 96 06/05/19 12:08 68 97 06/05/19 12:03 67 97 06/05/19 11:58 67 135/75 97 06/05/19 11:53 66 96 06/05/19 11:48 65 96 06/05/19 11:43 75 96 06/05/19 11:38 66 97 06/05/19 11:33 66 97 06/05/19 11:28 62 145/78 97 06/05/19 11:23 61 97 06/05/19 11:18 63 97 06/05/19 11:13 66 96 06/05/19 11:11 98.2 F 06/05/19 11:08 72 96 06/05/19 11:03 67 97 06/05/19 11:00 79 93 06/05/19 10:58 80 140/82 98 06/05/19 10:53 80 97 06/05/19 10:48 66 96 06/05/19 10:43 63 97 06/05/19 10:38 68 97 06/05/19 10:33 78 96 06/05/19 10:28 70 130/80 97 06/05/19 10:23 69 97 06/05/19 10:18 68 98 06/05/19 10:13 69 98 06/05/19 10:08 76 99 06/05/19 10:03 66 98 06/05/19 10:02 84 137/81 06/05/19 09:58 80 137/81 97 06/05/19 09:53 75 97 06/05/19 09:28 88 127/77 06/05/19 08:58 73 134/73 06/05/19 08:27 68 130/76 06/05/19 08:25 97.0 F L 70 18 133/78 06/05/19 07:58 70 137/78 06/05/19 07:28 59 L 137/72 06/05/19 07:12 16 06/05/19 06:30 56 L 15 117/67 97 06/05/19 05:30 67 14 119/71 97 06/05/19 04:40 77 14 139/71 97 06/05/19 04:20 16 06/05/19 03:40 97.6 F 70 14 134/81 100 06/05/19 02:30 16 06/05/19 02:00 81 18 142/83 99 06/05/19 01:30 56 L 133/75 06/05/19 00:10 51 L 13 135/83 99 06/04/19 23:27 55 L 143/75 06/04/19 23:00 54 L 13 142/81 97 06/04/19 22:30 18 06/04/19 22:00 18 06/04/19 21:46 46 L 168/87 06/04/19 21:15 98.0 F 43 L 16 160/80 99 06/04/19 19:58 98.2 F 45 L 18 175/88 88 Intake and Output 06/05/19 06/05/19 06/05/19 07:59 15:59 23:59 Intake Total 444.583 Output Total 1900 2600 500 Balance -1455.417 -2600 -500 Intake: IV 144.583 MAGNESIUM SULFATE 2GM/ 50 50ML 2 gm In 50 ml @ 100 mls/hr IV ONCE ONE Rx#: [id number] MAGNESIUM SULFATE 2GM/ 94.583 50ML 2 gm In 50 ml @ 25 mls/hr IV ONCE ONE Rx#: [id number] Oral 300 Output: Urine 1900 2600 500 Indwelling Catheter 1300 2600 500 Uretheral (Diaz) 600 Other: Total, Intake Amount 300 Total, Output Amount 200 200 200 - Exam Cardiovascular: Present: Normal S1, Normal S2 Lungs: Present: Clear to auscultation Vulva: both: normal Deep Tendon Reflex Grade: Normal +2 - Labs Labs: Abnormal lab results 06/04/19 06/04/19 06/04/19 Range/Units 20:15 20:15 20:15 WBC 3.7 L (4.5-11.0) K/mm3 RBC 3.06 L (3.65-5.03) M/mm3 Hgb 9.6 L (10.1-14.3) gm/dl Hct 28.6 L (30.3-42.9) % Eos % (Auto) 7.7 H (0.0-4.3) % Lymph # 0.9 L (1.2-5.4) K/mm3 D-Dimer 7311.85 H (0-234) ng/mlDDU Calcium 8.3 L (8.4-10.2) mg/dL Magnesium (1.7-2.3) mg/dL Lactate Dehydrogenase (91-180) units/L NT-Pro-B Natriuret Pep (0-450) pg/mL Albumin 3.1 L (3.9-5) g/dL Urine Blood (Negative) 06/04/19 06/04/19 06/05/19 Range/Units 23:00 Unknown 01:48 WBC (4.5-11.0) K/mm3 RBC (3.65-5.03) M/mm3 Hgb (10.1-14.3) gm/dl Hct (30.3-42.9) % Eos % (Auto) (0.0-4.3) % Lymph # (1.2-5.4) K/mm3 D-Dimer (0-234) ng/mlDDU Calcium (8.4-10.2) mg/dL Magnesium 4.70 H (1.7-2.3) mg/dL Lactate Dehydrogenase (91-180) units/L NT-Pro-B Natriuret Pep 459.5 H (0-450) pg/mL Albumin (3.9-5) g/dL Urine Blood Moderate A (Negative) 06/05/19 06/05/19 Range/Units 04:46 12:43 WBC (4.5-11.0) K/mm3 RBC (3.65-5.03) M/mm3 Hgb (10.1-14.3) gm/dl Hct (30.3-42.9) % Eos % (Auto) (0.0-4.3) % Lymph # (1.2-5.4) K/mm3 D-Dimer (0-234) ng/mlDDU Calcium (8.4-10.2) mg/dL Magnesium 5.60 H (1.7-2.3) mg/dL Lactate Dehydrogenase 227 H (91-180) units/L NT-Pro-B Natriuret Pep (0-450) pg/mL Albumin (3.9-5) g/dL Urine Blood (Negative)
[2019-06-05] MEDS: AUGMENTIN 875 MG PO SCH (21:50)
[2019-06-06] MEDS: MAGNESIUM SULFATE 40GM/1000ML 40 GM/1,000 ML BAG IV SCH (02:36)
[2019-06-06] MEDS: NORCO 5/325 PO PRN ×2 (05:03→22:57)
[2019-06-06] MEDS: APRESOLINE PO SCH (10:03)
[2019-06-06] MEDS: AUGMENTIN 875 MG PO SCH (10:04)
[2019-06-06] MEDS: ASPIRIN PO SCH (10:04)
--- NOTE | 2019-06-06 10:21 | Progress Note ---
Assessment and Plan - Patient Problems (1) Pre-eclampsia affecting puerperium Current Visit: Yes Status: Acute Plan to address problem: Mg sulfate was discontinued this AM. Monitor BP. Nifedipine has been added for BP control. Patient may be discharged home later if BP remains stable. (2) S/P section Current Visit: Yes Status: Acute Plan to address problem: Routine post op care. (3) Anemia Current Visit: Yes Status: Acute Qualifiers: Anemia type: iron deficiency (4) Sinusitis Current Visit: Yes Status: Acute Plan to address problem: Augmentin BID. (5) Chest pain Current Visit: Yes Status: Acute Plan to address problem: Patient is asymptomatic now. Echo result reviewed by explosives mixer operator was normal. Cardilogist cleared the patient. Subjective - Subjective Date of service: 06/06/19 Principal diagnosis: S/P C/section 7 days ago with pre-eclampsia. Interval history: Patient is a 39-year-old, , who is S/P repeat section 7 days ago at 39 wks. She did not have any complications during this . She was discharged from hospital on pos-op day 3. On Tuesday she developed bilateral leg swelling. On Tuesday she worsened as she developed headaches, chest pain and shortness of breath. She felt pressure in her chest as her heart beats. She had preeclampsia in the period during her previous . On admission, her BP was 175/88. She was treated with magnesium sulfate and IV hydralazine and labetolol was given later for BP control. Labetolol has been discontinued. Hb/Hct were 9.6/28.6. EKG showed sinus tachycardia. Cardiac enzymes were negative. Chest CT was negative for PE. Cardiology consult was called. Echocardiogram showed normal left ventricular EF. Today, she denies any chest pain or SOB. Her BP is stable. Nifedipine has been added. Objective - Vital Signs Latest vital signs: Vital Signs Temp Pulse Resp BP BP Pulse Ox 06/06/19 10:19 61 99 06/06/19 10:14 65 99 06/06/19 10:09 70 99 06/06/19 10:04 74 100 06/06/19 10:03 136/82 06/06/19 09:59 65 98 06/06/19 09:58 68 136/82 06/06/19 09:54 59 L 99 06/06/19 09:49 63 100 06/06/19 09:44 72 98 06/06/19 09:39 72 100 06/06/19 09:34 82 99 06/06/19 09:29 90 99 06/06/19 09:28 68 130/81 06/06/19 09:24 73 100 06/06/19 09:19 74 99 06/06/19 09:14 69 99 06/06/19 09:09 59 L 99 06/06/19 09:04 66 99 06/06/19 09:00 98.1 F 64 16 129/80 06/06/19 08:59 58 L 99 06/06/19 08:58 60 143/80 06/06/19 08:54 71 99 06/06/19 08:49 57 L 100 06/06/19 08:44 73 100 06/06/19 08:39 83 97 06/06/19 08:34 69 100 06/06/19 08:29 74 99 06/06/19 08:28 66 129/80 06/06/19 08:24 69 97 06/06/19 08:19 56 L 97 06/06/19 08:14 59 L 97 06/06/19 08:09 60 97 06/06/19 08:04 52 L 97 06/06/19 07:59 65 97 06/06/19 07:58 59 L 125/69 94 06/06/19 07:54 61 96 06/06/19 07:49 60 96 06/06/19 07:44 57 L 96 06/06/19 07:39 57 L 97 06/06/19 07:34 55 L 98 06/06/19 07:29 60 96 06/06/19 07:28 55 L 128/81 06/06/19 07:26 66 93 06/06/19 07:24 62 96 06/06/19 07:20 56 L 94 06/06/19 07:19 63 96 06/06/19 07:15 59 L 92 06/06/19 07:14 59 L 99 06/06/19 07:10 67 90 06/06/19 07:09 61 96 06/06/19 07:04 56 L 96 06/06/19 06:59 60 98 06/06/19 06:58 57 L 122/69 06/06/19 06:54 59 L 96 08/14/19 06:49 57 L 96 06/06/19 06:44 57 L 96 06/06/19 06:39 55 L 97 06/06/19 06:34 61 97 06/06/19 06:29 59 L 96 06/06/19 06:28 57 L 130/66 94 06/06/19 06:24 65 95 06/06/19 06:19 60 96 06/06/19 06:14 61 96 06/06/19 06:09 59 L 96 06/06/19 06:04 56 L 97 06/06/19 05:59 61 96 06/06/19 05:58 56 L 125/76 06/06/19 05:54 59 L 96 06/06/19 05:49 57 L 97 06/06/19 05:44 64 96 06/06/19 05:39 59 L 97 06/06/19 05:34 58 L 97 06/06/19 05:29 58 L 97 06/06/19 05:28 56 L 137/73 06/06/19 05:24 59 L 98 06/06/19 05:19 61 99 06/06/19 05:14 55 L 99 06/06/19 05:09 63 98 06/06/19 05:04 73 99 06/06/19 04:59 52 L 98 06/06/19 04:57 58 L 154/80 06/06/19 04:54 62 97 06/06/19 04:45 64 87 06/06/19 04:42 92 06/06/19 04:40 57 L 100 06/06/19 04:35 59 L 98 06/06/19 04:30 97.5 F L 71 18 98 06/06/19 04:28 61 118/77 06/06/19 04:25 61 97 06/06/19 04:20 56 L 97 06/06/19 04:15 55 L 97 06/06/19 04:10 56 L 97 06/06/19 04:05 59 L 97 06/06/19 04:00 56 L 98 06/06/19 03:58 53 L 127/77 06/06/19 03:55 69 98 06/06/19 03:50 66 97 06/06/19 03:45 58 L 97 06/06/19 03:40 75 97 06/06/19 03:35 72 97 06/06/19 03:30 72 95 06/06/19 03:28 66 154/88 06/06/19 03:26 54 L 93 06/06/19 03:25 54 L 98 06/06/19 03:20 51 L 97 06/06/19 03:15 63 98 06/06/19 03:10 57 L 97 06/06/19 03:05 54 L 97 06/06/19 03:00 56 L 98 06/06/19 02:58 65 129/85 06/06/19 02:55 59 L 97 06/06/19 02:50 60 97 06/06/19 02:45 56 L 97 06/06/19 02:40 50 L 98 06/06/19 02:35 52 L 98 06/06/19 02:30 56 L 97 06/06/19 02:28 54 L 140/72 06/06/19 02:25 59 L 96 06/06/19 02:20 57 L 96 06/06/19 02:15 59 L 96 06/06/19 02:10 53 L 141/75 98 06/06/19 02:05 58 L 97 06/06/19 02:00 54 L 97 06/06/19 01:59 44 L 06/06/19 01:54 59 L 96 06/06/19 01:49 55 L 98 06/06/19 01:44 71 99 06/06/19 01:43 82 92 06/06/19 01:39 54 L 99 06/06/19 01:35 80 93 06/06/19 01:34 81 97 06/06/19 01:29 67 97 06/06/19 01:28 60 141/75 06/06/19 01:24 77 92 06/06/19 01:19 61 95 06/06/19 01:14 60 97 06/06/19 01:09 65 99 06/06/19 01:04 86 100 06/06/19 00:59 60 98 06/06/19 00:58 68 128/75 06/06/19 00:54 65 97 06/06/19 00:49 62 97 06/06/19 00:44 66 97 06/06/19 00:39 64 98 06/06/19 00:34 60 98 06/06/19 00:29 64 98 06/06/19 00:28 66 119/83 06/06/19 00:24 73 99 06/06/19 00:19 63 99 06/06/19 00:14 59 L 99 06/06/19 00:09 66 100 06/06/19 00:06 67 130/78 06/06/19 00:04 70 100 06/05/19 23:59 74 99 06/05/19 23:54 80 100 06/05/19 23:49 64 99 06/05/19 23:44 77 100 06/05/19 23:39 69 98 06/05/19 23:34 61 99 06/05/19 23:29 65 99 06/05/19 23:28 67 133/80 06/05/19 23:24 81 98 06/05/19 23:19 80 99 06/05/19 23:14 76 98 06/05/19 23:09 68 99 06/05/19 23:04 62 99 06/05/19 22:59 64 99 06/05/19 22:58 63 128/81 06/05/19 22:54 62 99 06/05/19 22:49 66 98 06/05/19 22:44 73 99 06/05/19 22:39 68 100 06/05/19 22:34 72 99 06/05/19 22:29 65 100 06/05/19 22:28 65 128/75 06/05/19 22:24 66 99 06/05/19 22:19 58 L 100 06/05/19 22:17 63 89 06/05/19 22:14 62 99 06/05/19 22:09 65 99 06/05/19 22:04 66 99 06/05/19 21:59 70 99 06/05/19 21:58 66 136/87 06/05/19 21:56 97.3 F L 18 99 06/05/19 21:54 61 97 06/05/19 21:51 56 L 140/77 06/05/19 21:50 60 140/77 06/05/19 21:49 61 99 06/05/19 21:44 60 98 06/05/19 21:39 84 99 06/05/19 21:34 61 98 06/05/19 21:29 58 L 99 06/05/19 21:28 56 L 144/83 06/05/19 21:24 69 100 06/05/19 21:19 57 L 98 06/05/19 21:14 59 L 98 06/05/19 21:09 61 99 06/05/19 21:04 80 98 06/05/19 20:59 68 99 06/05/19 20:58 63 139/82 06/05/19 20:54 68 99 06/05/19 20:49 68 99 06/05/19 20:44 70 100 06/05/19 20:39 71 99 06/05/19 20:34 71 100 06/05/19 20:29 78 99 06/05/19 20:28 65 125/82 06/05/19 20:24 70 99 06/05/19 20:20 71 90 06/05/19 20:19 72 99 06/05/19 20:14 71 97 06/05/19 20:09 78 98 06/05/19 20:04 76 99 06/05/19 19:59 63 98 06/05/19 19:58 63 122/78 06/05/19 19:54 62 98 06/05/19 19:49 68 98 06/05/19 19:44 66 99 06/05/19 19:39 71 97 06/05/19 19:34 79 98 06/05/19 19:29 65 99 06/05/19 19:28 65 123/78 06/05/19 19:24 64 98 06/05/19 19:19 80 98 06/05/19 19:16 80 94 06/05/19 19:14 69 96 06/05/19 19:13 69 137/94 06/05/19 19:08 69 100 06/05/19 19:03 73 100 06/05/19 18:58 74 129/70 98 06/05/19 18:53 64 98 06/05/19 18:48 78 99 06/05/19 18:43 69 99 06/05/19 18:38 67 97 06/05/19 18:33 71 98 06/05/19 18:28 97.1 F L 81 137/83 98 06/05/19 18:23 66 99 06/05/19 18:18 74 98 06/05/19 18:13 80 99 06/05/19 18:11 73 139/75 06/05/19 18:08 67 98 06/05/19 18:03 69 99 06/05/19 17:58 63 139/75 99 06/05/19 17:53 74 99 06/05/19 17:48 69 99 06/05/19 17:43 67 99 06/05/19 17:38 68 99 06/05/19 17:33 80 100 06/05/19 17:28 80 136/83 99 06/05/19 17:23 75 99 06/05/19 17:18 68 98 06/05/19 17:13 72 97 06/05/19 17:08 72 98 06/05/19 17:03 72 99 06/05/19 16:58 68 140/77 98 06/05/19 16:53 80 97 06/05/19 16:48 76 99 06/05/19 16:43 65 98 06/05/19 16:38 63 97 06/05/19 16:33 61 98 06/05/19 16:28 65 128/80 98 06/05/19 16:23 65 98 06/05/19 16:18 66 98 06/05/19 16:13 64 97 06/05/19 16:08 68 99 06/05/19 16:03 63 98 06/05/19 15:58 62 124/73 98 06/05/19 15:53 60 98 06/05/19 15:48 61 97 06/05/19 15:43 81 97 06/05/19 15:38 66 97 06/05/19 15:33 66 98 06/05/19 15:28 64 153/78 96 06/05/19 15:23 65 97 06/05/19 15:18 69 99 06/05/19 15:13 69 98 06/05/19 15:12 82 125/78 06/05/19 15:08 64 97 06/05/19 15:03 65 97 06/05/19 14:58 76 125/78 97 06/05/19 14:53 67 96 06/05/19 14:48 67 97 06/05/19 14:43 68 96 06/05/19 14:38 63 96 06/05/19 14:33 64 98 06/05/19 14:28 64 120/74 98 06/05/19 14:23 64 97 06/05/19 14:18 62 98 06/05/19 14:13 62 98 06/05/19 14:08 68 97 06/05/19 14:03 66 97 06/05/19 13:58 65 141/73 97 06/05/19 13:53 58 L 97 06/05/19 13:48 79 99 06/05/19 13:43 65 97 06/05/19 13:38 77 99 06/05/19 13:33 75 98 06/05/19 13:28 61 131/77 98 06/05/19 13:23 59 L 98 06/05/19 13:18 64 99 06/05/19 13:13 64 97 06/05/19 13:08 69 99 06/05/19 13:07 71 128/79 06/05/19 13:03 63 97 06/05/19 12:58 77 99 06/05/19 12:53 61 97 06/05/19 12:49 96 H 0 L 06/05/19 12:48 83 98 06/05/19 12:43 89 97 06/05/19 12:38 66 98 06/05/19 12:33 60 99 06/05/19 12:28 78 136/82 98 06/05/19 12:23 84 95 06/05/19 12:18 68 97 06/05/19 12:13 73 96 06/05/19 12:08 68 97 06/05/19 12:03 67 97 06/05/19 11:58 67 135/75 97 06/05/19 11:53 66 96 06/05/19 11:48 65 96 06/05/19 11:43 75 96 06/05/19 11:38 66 97 06/05/19 11:33 66 97 06/05/19 11:28 62 145/78 97 06/05/19 11:23 61 97 06/05/19 11:18 63 97 06/05/19 11:13 66 96 06/05/19 11:11 98.2 F 06/05/19 11:08 72 96 06/05/19 11:03 67 97 06/05/19 11:00 79 93 06/05/19 10:58 80 140/82 98 06/05/19 10:53 80 97 06/05/19 10:48 66 96 06/05/19 10:43 63 97 06/05/19 10:38 68 97 06/05/19 10:33 78 96 06/05/19 10:28 70 130/80 97 06/05/19 10:23 69 97 Intake and Output 06/05/19 06/06/19 06/06/19 23:59 07:59 15:59 Intake Total 1000 Output Total 2150 300 Balance -1150 -300 Intake: IV 1000 MAGNESIUM SULFATE 40GM/ 1000 1000ML 40 gm In 1,000 ml @ 2 GM/HR 50 mls/hr IV DIRECT VÍCTOR Rx#:[id number] Output: Urine 2150 300 Indwelling Catheter 2150 300 Other: Total, Output Amount 800 300 - Exam Cardiovascular: Present: Normal S1, Normal S2 Lungs: Present: Clear to auscultation Vulva: both: normal Deep Tendon Reflex Grade: Normal +2 - Labs Labs: Abnormal lab results 06/05/19 06/05/19 06/06/19 Range/Units 12:43 17:31 00:09 Magnesium 5.60 H 6.20 H 5.30 H (1.7-2.3) mg/dL
--- NOTE | 2019-06-06 11:42 | Progress Note ---
<JERRY ABREU - Last Filed: 06/06/19 11:38> Assessment and Plan Hypertension, better Status post recent Chest pain no acute ischemic changes on an ECG cardiac enzymes are normal Chest CTA is reported as negative for PE but evidence of lung nodule measuring 6 mm. EKG is sinus bradycardia, no ischemic changes. TSH is normal An echocardiogram reports a normal left ventricular systolic function EF 60-65%. Plan: Continue optimal antihypertensive management. We will use Procardia XL 60mg daily instead of hydralazine. Avoid AV ramesh blocking agents. Otherwise, no further cardiac workup indicated. We will sign off. Subjective Date of service: 06/06/19 Interval history: Patient is resting in bed and reports she is feeling better. She denies chest pain and has no further headaches. Objective Vital Signs Temp Pulse Resp BP BP Pulse Ox 06/06/19 11:34 64 98 06/06/19 11:29 61 98 06/06/19 11:28 66 135/84 06/06/19 11:24 65 98 06/06/19 11:19 63 98 06/06/19 11:14 65 98 06/06/19 11:09 68 98 06/06/19 11:04 77 98 06/06/19 10:59 71 99 06/06/19 10:58 68 130/79 06/06/19 10:54 79 99 06/06/19 10:49 79 98 06/06/19 10:44 68 98 06/06/19 10:39 71 98 06/06/19 10:34 70 98 06/06/19 10:29 72 99 06/06/19 10:28 69 118/72 06/06/19 10:24 66 100 06/06/19 10:19 61 99 06/06/19 10:14 65 99 06/06/19 10:09 70 99 06/06/19 10:04 74 100 06/06/19 10:03 136/82 06/06/19 09:59 65 98 06/06/19 09:58 68 136/82 06/06/19 09:54 59 L 99 06/06/19 09:49 63 100 06/06/19 09:44 72 98 06/06/19 09:39 72 100 06/06/19 09:34 82 99 06/06/19 09:29 90 99 06/06/19 09:28 68 130/81 06/06/19 09:24 73 100 06/06/19 09:19 74 99 06/06/19 09:14 69 99 06/06/19 09:09 59 L 99 06/06/19 09:04 66 99 06/06/19 09:00 98.1 F 64 16 129/80 06/06/19 08:59 58 L 99 06/06/19 08:58 60 143/80 06/06/19 08:54 71 99 06/06/19 08:49 57 L 100 06/06/19 08:44 73 100 06/06/19 08:39 83 97 06/06/19 08:34 69 100 06/06/19 08:29 74 99 06/06/19 08:28 66 129/80 06/06/19 08:24 69 97 06/06/19 08:19 56 L 97 06/06/19 08:14 59 L 97 06/06/19 08:09 60 97 06/06/19 08:04 52 L 97 06/06/19 07:59 65 97 06/06/19 07:58 59 L 125/69 94 06/06/19 07:54 61 96 06/06/19 07:49 60 96 06/06/19 07:44 57 L 96 06/06/19 07:39 57 L 97 06/06/19 07:34 55 L 98 06/06/19 07:29 60 96 06/06/19 07:28 55 L 128/81 06/06/19 07:26 66 93 06/06/19 07:24 62 96 06/06/19 07:20 56 L 94 06/06/19 07:19 63 96 06/06/19 07:15 59 L 92 06/06/19 07:14 59 L 99 06/06/19 07:10 67 90 06/06/19 07:09 61 96 06/06/19 07:04 56 L 96 06/06/19 06:59 60 98 06/06/19 06:58 57 L 122/69 06/06/19 06:54 59 L 96 06/06/19 06:49 57 L 96 06/06/19 06:44 57 L 96 06/06/19 06:39 55 L 97 06/06/19 06:34 61 97 06/06/19 06:29 59 L 96 06/06/19 06:28 57 L 130/66 94 06/06/19 06:24 65 95 06/06/19 06:19 60 96 06/06/19 06:14 61 96 06/06/19 06:09 59 L 96 06/06/19 06:04 56 L 97 06/06/19 05:59 61 96 06/06/19 05:58 56 L 125/76 06/06/19 05:54 59 L 96 06/06/19 05:49 57 L 97 06/06/19 05:44 64 96 06/06/19 05:39 59 L 97 06/06/19 05:34 58 L 97 06/06/19 05:29 58 L 97 06/06/19 05:28 56 L 137/73 06/06/19 05:24 59 L 98 06/06/19 05:19 61 99 06/06/19 05:14 55 L 99 06/06/19 05:09 63 98 06/06/19 05:04 73 99 06/06/19 04:59 52 L 98 06/06/19 04:57 58 L 154/80 06/06/19 04:54 62 97 06/06/19 04:45 64 87 06/06/19 04:42 92 06/06/19 04:40 57 L 100 06/06/19 04:35 59 L 98 06/06/19 04:30 97.5 F L 71 18 98 06/06/19 04:28 61 118/77 06/06/19 04:25 61 97 06/06/19 04:20 56 L 97 06/06/19 04:15 55 L 97 06/06/19 04:10 56 L 97 06/06/19 04:05 59 L 97 06/06/19 04:00 56 L 98 06/06/19 03:58 53 L 127/77 06/06/19 03:55 69 98 06/06/19 03:50 66 97 06/06/19 03:45 58 L 97 06/06/19 03:40 75 97 06/06/19 03:35 72 97 06/06/19 03:30 72 95 06/06/19 03:28 66 154/88 06/06/19 03:26 54 L 93 06/06/19 03:25 54 L 98 06/06/19 03:20 51 L 97 06/06/19 03:15 63 98 06/06/19 03:10 57 L 97 06/06/19 03:05 54 L 97 06/06/19 03:00 56 L 98 06/06/19 02:58 65 129/85 06/06/19 02:55 59 L 97 06/06/19 02:50 60 97 06/06/19 02:45 56 L 97 06/06/19 02:40 50 L 98 06/06/19 02:35 52 L 98 06/06/19 02:30 56 L 97 06/06/19 02:28 54 L 140/72 06/06/19 02:25 59 L 96 06/06/19 02:20 57 L 96 06/06/19 02:15 59 L 96 06/06/19 02:10 53 L 141/75 98 06/06/19 02:05 58 L 97 06/06/19 02:00 54 L 97 06/06/19 01:59 44 L 06/06/19 01:54 59 L 96 06/06/19 01:49 55 L 98 06/06/19 01:44 71 99 06/06/19 01:43 82 92 06/06/19 01:39 54 L 99 06/06/19 01:35 80 93 06/06/19 01:34 81 97 06/06/19 01:29 67 97 06/06/19 01:28 60 141/75 06/06/19 01:24 77 92 06/06/19 01:19 61 95 06/06/19 01:14 60 97 06/06/19 01:09 65 99 06/06/19 01:04 86 100 06/06/19 00:59 60 98 06/06/19 00:58 68 128/75 06/06/19 00:54 65 97 06/06/19 00:49 62 97 06/06/19 00:44 66 97 06/06/19 00:39 64 98 06/06/19 00:34 60 98 06/06/19 00:29 64 98 06/06/19 00:28 66 119/83 06/06/19 00:24 73 99 06/06/19 00:19 63 99 06/06/19 00:14 59 L 99 06/06/19 00:09 66 100 06/06/19 00:06 67 130/78 06/06/19 00:04 70 100 06/05/19 23:59 74 99 06/05/19 23:54 80 100 06/05/19 23:49 64 99 06/05/19 23:44 77 100 06/05/19 23:39 69 98 06/05/19 23:34 61 99 06/05/19 23:29 65 99 06/05/19 23:28 67 133/80 06/05/19 23:24 81 98 06/05/19 23:19 80 99 06/05/19 23:14 76 98 06/05/19 23:09 68 99 06/05/19 23:04 62 99 06/05/19 22:59 64 99 06/05/19 22:58 63 128/81 06/05/19 22:54 62 99 06/05/19 22:49 66 98 06/05/19 22:44 73 99 06/05/19 22:39 68 100 06/05/19 22:34 72 99 06/05/19 22:29 65 100 06/05/19 22:28 65 128/75 06/05/19 22:24 66 99 06/05/19 22:19 58 L 100 06/05/19 22:17 63 89 06/05/19 22:14 62 99 06/05/19 22:09 65 99 06/05/19 22:04 66 99 06/05/19 21:59 70 99 06/05/19 21:58 66 136/87 06/05/19 21:56 97.3 F L 18 99 06/05/19 21:54 61 97 06/05/19 21:51 56 L 140/77 06/05/19 21:50 60 140/77 06/05/19 21:49 61 99 06/05/19 21:44 60 98 06/05/19 21:39 84 99 06/05/19 21:34 61 98 06/05/19 21:29 58 L 99 06/05/19 21:28 56 L 144/83 06/05/19 21:24 69 100 06/05/19 21:19 57 L 98 06/05/19 21:14 59 L 98 06/05/19 21:09 61 99 06/05/19 21:04 80 98 06/05/19 20:59 68 99 06/05/19 20:58 63 139/82 06/05/19 20:54 68 99 06/05/19 20:49 68 99 06/05/19 20:44 70 100 06/05/19 20:39 71 99 06/05/19 20:34 71 100 06/05/19 20:29 78 99 06/05/19 20:28 65 125/82 06/05/19 20:24 70 99 06/05/19 20:20 71 90 06/05/19 20:19 72 99 06/05/19 20:14 71 97 06/05/19 20:09 78 98 06/05/19 20:04 76 99 06/05/19 19:59 63 98 06/05/19 19:58 63 122/78 06/05/19 19:54 62 98 06/05/19 19:49 68 98 06/05/19 19:44 66 99 06/05/19 19:39 71 97 06/05/19 19:34 79 98 06/05/19 19:29 65 99 06/05/19 19:28 65 123/78 06/05/19 19:24 64 98 06/05/19 19:19 80 98 06/05/19 19:16 80 94 06/05/19 19:14 69 96 06/05/19 19:13 69 137/94 06/05/19 19:08 69 100 06/05/19 19:03 73 100 06/05/19 18:58 74 129/70 98 06/05/19 18:53 64 98 06/05/19 18:48 78 99 06/05/19 18:43 69 99 06/05/19 18:38 67 97 06/05/19 18:33 71 98 06/05/19 18:28 97.1 F L 81 137/83 98 06/05/19 18:23 66 99 06/05/19 18:18 74 98 06/05/19 18:13 80 99 06/05/19 18:11 73 139/75 06/05/19 18:08 67 98 06/05/19 18:03 69 99 06/05/19 17:58 63 139/75 99 06/05/19 17:53 74 99 06/05/19 17:48 69 99 06/05/19 17:43 67 99 06/05/19 17:38 68 99 06/05/19 17:33 80 100 06/05/19 17:28 80 136/83 99 06/05/19 17:23 75 99 06/05/19 17:18 68 98 06/05/19 17:13 72 97 06/05/19 17:08 72 98 06/05/19 17:03 72 99 06/05/19 16:58 68 140/77 98 06/05/19 16:53 80 97 06/05/19 16:48 76 99 06/05/19 16:43 65 98 06/05/19 16:38 63 97 06/05/19 16:33 61 98 06/05/19 16:28 65 128/80 98 06/05/19 16:23 65 98 06/05/19 16:18 66 98 06/05/19 16:13 64 97 06/05/19 16:08 68 99 06/05/19 16:03 63 98 06/05/19 15:58 62 124/73 98 06/05/19 15:53 60 98 06/05/19 15:48 61 97 06/05/19 15:43 81 97 06/05/19 15:38 66 97 06/05/19 15:33 66 98 06/05/19 15:28 64 153/78 96 06/05/19 15:23 65 97 06/05/19 15:18 69 99 06/05/19 15:13 69 98 06/05/19 15:12 82 125/78 06/05/19 15:08 64 97 06/05/19 15:03 65 97 06/05/19 14:58 76 125/78 97 06/05/19 14:53 67 96 06/05/19 14:48 67 97 06/05/19 14:43 68 96 06/05/19 14:38 63 96 06/05/19 14:33 64 98 06/05/19 14:28 64 120/74 98 06/05/19 14:23 64 97 06/05/19 14:18 62 98 06/05/19 14:13 62 98 06/05/19 14:08 68 97 06/05/19 14:03 66 97 06/05/19 13:58 65 141/73 97 06/05/19 13:53 58 L 97 06/05/19 13:48 79 99 06/05/19 13:43 65 97 06/05/19 13:38 77 99 06/05/19 13:33 75 98 06/05/19 13:28 61 131/77 98 06/05/19 13:23 59 L 98 06/05/19 13:18 64 99 06/05/19 13:13 64 97 06/05/19 13:08 69 99 06/05/19 13:07 71 128/79 06/05/19 13:03 63 97 06/05/19 12:58 77 99 06/05/19 12:53 61 97 06/05/19 12:49 96 H 0 L 06/05/19 12:48 83 98 06/05/19 12:43 89 97 06/05/19 12:38 66 98 06/05/19 12:33 60 99 06/05/19 12:28 78 136/82 98 06/05/19 12:23 84 95 06/05/19 12:18 68 97 06/05/19 12:13 73 96 06/05/19 12:08 68 97 06/05/19 12:03 67 97 06/05/19 11:58 67 135/75 97 06/05/19 11:53 66 96 06/05/19 11:48 65 96 06/05/19 11:43 75 96 - Physical Examination General: No Apparent Distress HEENT: Positive: PERRL Neck: Positive: trachea midline Cardiac: Positive: Reg Rate and Rhythm Lungs: Positive: Normal Breath Sounds Neuro: Positive: Grossly Intact Extremities: Absent: edema <YI GOODMAN - Last Filed: 06/06/19 20:22> Assessment and Plan I have seen and evaluated the patient and agree with the assessment and plan. Objective Vital Signs Temp Pulse Resp BP BP Pulse Ox 06/06/19 16:04 97.8 F 59 L 18 144/86 98 06/06/19 14:50 97.8 F 67 18 145/88 06/06/19 13:05 71 128/79 06/06/19 11:57 29 L 89 06/06/19 11:54 61 98 06/06/19 11:49 70 98 06/06/19 11:44 59 L 98 06/06/19 11:39 63 98 06/06/19 11:34 64 98 06/06/19 11:30 66 135/84 06/06/19 11:29 61 98 06/06/19 11:28 66 135/84 06/06/19 11:24 65 98 06/06/19 11:19 63 98 06/06/19 11:14 65 98 06/06/19 11:09 68 98 06/06/19 11:04 77 98 06/06/19 10:59 71 99 06/06/19 10:58 68 130/79 130/79 06/06/19 10:54 79 99 06/06/19 10:49 79 98 06/06/19 10:44 68 98 06/06/19 10:39 71 98 06/06/19 10:34 70 98 06/06/19 10:29 72 99 06/06/19 10:28 69 118/72 118/72 06/06/19 10:24 66 100 06/06/19 10:19 61 99 06/06/19 10:14 65 99 06/06/19 10:09 70 99 06/06/19 10:04 74 100 06/06/19 10:03 136/82 06/06/19 10:00 68 136/82 06/06/19 09:59 65 98 06/06/19 09:58 68 136/82 06/06/19 09:54 59 L 99 06/06/19 09:49 63 100 06/06/19 09:44 72 98 06/06/19 09:39 72 100 06/06/19 09:34 82 99 06/06/19 09:30 68 130/81 06/06/19 09:29 90 99 06/06/19 09:28 68 130/81 06/06/19 09:24 73 100 06/06/19 09:19 74 99 06/06/19 09:14 69 99 06/06/19 09:09 59 L 99 06/06/19 09:04 66 99 06/06/19 09:00 98.1 F 60 16 143/80 06/06/19 08:59 58 L 99 06/06/19 08:58 60 143/80 06/06/19 08:54 71 99 06/06/19 08:49 57 L 100 06/06/19 08:44 73 100 06/06/19 08:39 83 97 06/06/19 08:34 69 100 06/06/19 08:30 66 129/80 06/06/19 08:29 74 99 06/06/19 08:28 66 129/80 06/06/19 08:24 69 97 06/06/19 08:19 56 L 97 06/06/19 08:14 59 L 97 06/06/19 08:09 60 97 06/06/19 08:04 52 L 97 06/06/19 08:00 60 125/69 06/06/19 07:59 65 97 06/06/19 07:58 59 L 125/69 94 06/06/19 07:54 61 96 06/06/19 07:49 60 96 06/06/19 07:44 57 L 96 06/06/19 07:39 57 L 97 06/06/19 07:34 55 L 98 06/06/19 07:30 55 L 128/81 06/06/19 07:29 60 96 06/06/19 07:28 55 L 128/81 06/06/19 07:26 66 93 06/06/19 07:24 62 96 06/06/19 07:20 56 L 94 06/06/19 07:19 63 96 06/06/19 07:15 59 L 92 06/06/19 07:14 59 L 99 06/06/19 07:10 67 90 06/06/19 07:09 61 96 06/06/19 07:04 56 L 96 06/06/19 06:59 60 98 06/06/19 06:58 57 L 122/69 06/06/19 06:54 59 L 96 06/06/19 06:49 57 L 96 06/06/19 06:44 57 L 96 06/06/19 06:39 55 L 97 06/06/19 06:34 61 97 06/06/19 06:29 59 L 96 06/06/19 06:28 57 L 130/66 94 06/06/19 06:24 65 95 06/06/19 06:19 60 96 06/06/19 06:14 61 96 06/06/19 06:09 59 L 96 06/06/19 06:04 56 L 97 06/06/19 05:59 61 96 06/06/19 05:58 56 L 125/76 06/06/19 05:54 59 L 96 06/06/19 05:49 57 L 97 06/06/19 05:44 64 96 06/06/19 05:39 59 L 97 06/06/19 05:34 58 L 97 06/06/19 05:29 58 L 97 06/06/19 05:28 56 L 137/73 06/06/19 05:24 59 L 98 06/06/19 05:19 61 99 06/06/19 05:14 55 L 99 06/06/19 05:09 63 98 06/06/19 05:04 73 99 06/06/19 04:59 52 L 98 06/06/19 04:57 58 L 154/80 06/06/19 04:54 62 97 06/06/19 04:45 64 87 06/06/19 04:42 92 06/06/19 04:40 57 L 100 06/06/19 04:35 59 L 98 06/06/19 04:30 97.5 F L 71 18 98 06/06/19 04:28 61 118/77 06/06/19 04:25 61 97 06/06/19 04:20 56 L 97 06/06/19 04:15 55 L 97 06/06/19 04:10 56 L 97 06/06/19 04:05 59 L 97 06/06/19 04:00 56 L 98 06/06/19 03:58 53 L 127/77 06/06/19 03:55 69 98 06/06/19 03:50 66 97 06/06/19 03:45 58 L 97 06/06/19 03:40 75 97 06/06/19 03:35 72 97 06/06/19 03:30 72 95 06/06/19 03:28 66 154/88 06/06/19 03:26 54 L 93 06/06/19 03:25 54 L 98 06/06/19 03:20 51 L 97 06/06/19 03:15 63 98 06/06/19 03:10 57 L 97 06/06/19 03:05 54 L 97 06/06/19 03:00 56 L 98 06/06/19 02:58 65 129/85 06/06/19 02:55 59 L 97 06/06/19 02:50 60 97 06/06/19 02:45 56 L 97 06/06/19 02:40 50 L 98 06/06/19 02:35 52 L 98 06/06/19 02:30 56 L 97 06/06/19 02:28 54 L 140/72 06/06/19 02:25 59 L 96 06/06/19 02:20 57 L 96 06/06/19 02:15 59 L 96 06/06/19 02:10 53 L 141/75 98 06/06/19 02:05 58 L 97 06/06/19 02:00 54 L 97 06/06/19 01:59 44 L 06/06/19 01:54 59 L 96 06/06/19 01:49 55 L 98 06/06/19 01:44 71 99 06/06/19 01:43 82 92 06/06/19 01:39 54 L 99 06/06/19 01:35 80 93 06/06/19 01:34 81 97 06/06/19 01:29 67 97 06/06/19 01:28 60 141/75 06/06/19 01:24 77 92 06/06/19 01:19 61 95 06/06/19 01:14 60 97 06/06/19 01:09 65 99 06/06/19 01:04 86 100 06/06/19 00:59 60 98 06/06/19 00:58 68 128/75 06/06/19 00:54 65 97 06/06/19 00:49 62 97 06/06/19 00:44 66 97 06/06/19 00:39 64 98 06/06/19 00:34 60 98 06/06/19 00:29 64 98 06/06/19 00:28 66 119/83 06/06/19 00:24 73 99 06/06/19 00:19 63 99 06/06/19 00:14 59 L 99 06/06/19 00:09 66 100 06/06/19 00:06 67 130/78 06/06/19 00:04 70 100 06/05/19 23:59 74 99 06/05/19 23:54 80 100 06/05/19 23:49 64 99 06/05/19 23:44 77 100 06/05/19 23:39 69 98 06/05/19 23:34 61 99 06/05/19 23:29 65 99 06/05/19 23:28 67 133/80 06/05/19 23:24 81 98 06/05/19 23:19 80 99 06/05/19 23:14 76 98 06/05/19 23:09 68 99 06/05/19 23:04 62 99 06/05/19 22:59 64 99 06/05/19 22:58 63 128/81 06/05/19 22:54 62 99 06/05/19 22:49 66 98 06/05/19 22:44 73 99 06/05/19 22:39 68 100 06/05/19 22:34 72 99 06/05/19 22:29 65 100 06/05/19 22:28 65 128/75 06/05/19 22:24 66 99 06/05/19 22:19 58 L 100 06/05/19 22:17 63 89 06/05/19 22:14 62 99 06/05/19 22:09 65 99 06/05/19 22:04 66 99 06/05/19 21:59 70 99 06/05/19 21:58 66 136/87 06/05/19 21:56 97.3 F L 18 99 06/05/19 21:54 61 97 06/05/19 21:51 56 L 140/77 06/05/19 21:50 60 140/77 06/05/19 21:49 61 99 06/05/19 21:44 60 98 06/05/19 21:39 84 99 06/05/19 21:34 61 98 06/05/19 21:29 58 L 99 06/05/19 21:28 56 L 144/83 06/05/19 21:24 69 100 06/05/19 21:19 57 L 98 06/05/19 21:14 59 L 98 06/05/19 21:09 61 99 06/05/19 21:04 80 98 06/05/19 20:59 68 99 06/05/19 20:58 63 139/82 06/05/19 20:54 68 99 06/05/19 20:49 68 99 06/05/19 20:44 70 100 06/05/19 20:39 71 99 06/05/19 20:34 71 100 06/05/19 20:29 78 99 06/05/19 20:28 65 125/82 06/05/19 20:24 70 99
[2019-06-06] MEDS ORDERED: PROCARDIA XL PO SCH (14:00)
--- NOTE | 2019-06-06 14:32 | Discharge Summary ---
Providers - Providers Date of Admission: 06/05/19 00:42 Date of discharge: 06/06/19 Attending physician: ARON VARGAS MD 06/05/19 06:00 Consult to Physician [CONS] Routine Comment: Consulting Provider: JACQUES NEVES Physician Instructions: Reason For Exam: BRADYCARDIA POST DELIVERY WITH CHEST PAIN 06/05/19 08:50 Consult to Cardiology [CONS] Urgent Consulting Provider: MARILIA MCNAIR Reason For Exam: bradycardia ,Chest pain Primary care physician: DEMETRIO SPIVEY MD Hospitalization Reason for admission: other (Chest pain, pre-eclampsia.) Procedure: other Discharge diagnosis: other (Pre-eclampsia, chest pain, sinutitis) Hospital course: Patient is a 39-year-old, , who is S/P repeat section 7 days ago at 39 wks. She did not have any complications during this . She was discharged from hospital on pos-op day 3. On Tuesday she developed bilateral leg swelling. On Tuesday she worsened as she developed headaches, chest pain and shortness of breath. She felt pressure in her chest as her heart beats. She had preeclampsia in the period during her previous . On admission, her BP was 175/88. She was treated with magnesium sulfate and IV hydralazine and labetolol was given later for BP control. Labetolol has been discontinued. Hb/Hct were 9.6/28.6. EKG showed sinus tachycardia. Cardiac enzymes were negative. Chest CT was negative for PE. Cardiology consult was called. Echocardiogram showed normal left ventricular EF. Today, she denies any chest pain or SOB. Her BP is stable. Nifedipine has been added. Condition at discharge: Stable Disposition: DC- TO HOME OR SELFCARE - Discharge Diagnoses (1) Pre-eclampsia affecting puerperium Status: Acute (2) S/P section Status: Acute (3) Anemia Status: Acute Qualifiers: Anemia type: iron deficiency (4) Sinusitis Status: Acute (5) Chest pain Status: Acute Plan - Discharge Medications Prescriptions: Amoxicillin/Potassium Clav [Augmentin 875-125 Tablet] 1 each PO BID 7 Days #14 tablet - Provider Discharge Summary Additional instructions: [] Smoking cessation referral if applicable(refer to patient education folder for contact #) [] Refer to [facility] Booklet Call your doctor immediately for: * Fever > 100.5 * Heavy vaginal bleeding ( >1 pad per hour) * Severe persistent headache * Shortness of breath * Reddened, hot, painful area to leg or breast * Drainage or odor from incision. * Keep incision clean and dry at all times and follow doctor's instructions regarding bathing/showering - Follow up plan Follow up: DEMETRIO SPIVEY MD [Primary Care Provider] - 7 Days
--- NOTE | 2019-06-06 18:11 | Progress Note ---
Assessment and Plan Assessment and plan: --Constipation; Milk of magnesia, Dulcolax suppository as needed Advised to drink plenty of oral fluids -- bradycardia; Cardiology evaluated the patient, adjusted the medication Heart rate significantly improved --Atypical chest pain; resolved EKG no ST-T changes Cardiac enzymes within normal limits CTA chest negative for PE Echocardiogram 60-65% ejection fraction No further cardiac workup per cardiology Patient is medically stable for discharge Thank you for this consultation Will sign off History Interval history: Patient seen and examined medical records reviewed Patient complains of constipation of 4-5 days Alert Awake oriented 3 Vital signs noted Hospitalist Physical - Constitutional Vitals: Temp Pulse Resp BP Pulse Ox 97.8 F 59 L 18 144/86 98 06/06/19 16:04 06/06/19 16:04 06/06/19 16:04 06/06/19 16:04 06/06/19 16:04 General appearance: Present: no acute distress, well-nourished, obese - EENT Eyes: Present: PERRL, EOM intact - Neck Neck: Present: supple, normal ROM - Respiratory Respiratory effort: normal Respiratory: bilateral: diminished, negative: rales, rhonchi, wheezing - Cardiovascular Rhythm: regular Heart Sounds: Present: S1 & S2 - Extremities Extremities: no ischemia, No edema - Abdominal General gastrointestinal: soft, non-tender, non-distended, normal bowel sounds - Integumentary Integumentary: Present: clear, warm - Psychiatric Psychiatric: appropriate mood/affect, cooperative - Neurologic Neurologic: CNII-XII intact, moves all extremities Results - Labs CBC & Chem 7: 06/04/19 20:15 06/05/19 04:46 Labs: Laboratory Last Values WBC 3.7 K/mm3 (4.5-11.0) L 06/04/19 20:15 RBC 3.06 M/mm3 (3.65-5.03) L 06/04/19 20:15 Hgb 9.6 gm/dl (10.1-14.3) L 06/04/19 20:15 Hct 28.6 % (30.3-42.9) L 06/04/19 20:15 MCV 94 fl (79-97) 06/04/19 20:15 MCH 31 pg (28-32) 06/04/19 20:15 MCHC 34 % (30-34) 06/04/19 20:15 RDW 15.0 % (13.2-15.2) 06/04/19 20:15 Plt Count 157 K/mm3 (140-440) 06/04/19 20:15 Lymph % (Auto) 23.3 % (13.4-35.0) 06/04/19 20:15 Divide % (Auto) 6.0 % (0.0-7.3) 06/04/19 20:15 Eos % (Auto) 7.7 % (0.0-4.3) H 06/04/19 20:15 Baso % (Auto) 0.6 % (0.0-1.8) 06/04/19 20:15 Lymph # 0.9 K/mm3 (1.2-5.4) L 06/04/19 20:15 Divide # 0.2 K/mm3 (0.0-0.8) 06/04/19 20:15 Eos # 0.3 K/mm3 (0.0-0.4) 06/04/19 20:15 Baso # 0.0 K/mm3 (0.0-0.1) 06/04/19 20:15 Seg Neutrophils % 62.4 % (40.0-70.0) 06/04/19 20:15 Seg Neutrophils # 2.3 K/mm3 (1.8-7.7) 06/04/19 20:15 PT 13.4 Sec. (12.2-14.9) 06/04/19 20:15 INR 1.05 (0.87-1.13) 06/04/19 20:15 APTT 30.9 Sec. (24.2-36.6) 06/04/19 20:15 7311.85 ng/mlDDU (0-234) H 06/04/19 20:15 Sodium 141 mmol/L (137-145) 06/04/19 20:15 Potassium 4.4 mmol/L (3.6-5.0) 06/04/19 20:15 Chloride 105.3 mmol/L (98-107) 06/04/19 20:15 Carbon Dioxide 24 mmol/L (22-30) 06/04/19 20:15 16 mmol/L 06/04/19 20:15 BUN 11 mg/dL (7-17) 06/04/19 20:15 0.7 mg/dL (0.7-1.2) 06/05/19 04:46 Estimated GFR > 60 ml/min 06/05/19 04:46 16 % 06/04/19 20:15 Glucose 88 mg/dL (65-100) 06/04/19 20:15 5.0 mg/dL (3.5-7.6) 06/05/19 04:46 Calcium 8.3 mg/dL (8.4-10.2) L 06/04/19 20:15 Magnesium 5.30 mg/dL (1.7-2.3) H 06/06/19 00:09 0.40 mg/dL (0.1-1.2) 06/04/19 20:15 AST 22 units/L (5-40) 06/05/19 04:46 ALT 18 units/L (7-56) 06/05/19 04:46 116 units/L (35-129) 06/04/19 20:15 227 units/L (91-180) H 06/05/19 04:46 126 units/L (30-135) 06/05/19 04:46 CK-MB (CK-2) 1.4 ng/mL (0.0-4.0) 06/05/19 04:46 CK-MB (CK-2) Rel Index 1.1 (0-4) 06/05/19 04:46 < 0.010 ng/mL (0.00-0.029) 06/05/19 04:46 NT-Pro-B Natriuret Pep 459.5 pg/mL (0-450) H 06/04/19 Unknown 6.3 g/dL (6.3-8.2) 06/04/19 20:15 3.1 g/dL (3.9-5) L 06/04/19 20:15 1.0 % 06/04/19 20:15 TSH 0.915 mlU/mL (0.270-4.200) 06/05/19 19:36 Colorless (Yellow) 06/05/19 04:30 Clear (Clear) 06/05/19 04:30 7.0 (5.0-7.0) 06/05/19 04:30 Ur Specific [place] 1.014 (1.003-1.030) 06/05/19 04:30 <15 mg/dl mg/dL (Negative) 06/05/19 04:30 Neg mg/dL (Negative) 06/05/19 04:30 Neg mg/dL (Negative) 06/05/19 04:30 Neg (Negative) 06/05/19 04:30 Neg (Negative) 06/05/19 04:30 Ur Reducing Substances Negative (Negative) 06/04/19 23:00 Neg (Negative) 06/05/19 04:30 Negative (Negative) 06/04/19 23:00 < 2.0 mg/dL (<2.0) 06/05/19 04:30 Ur Leukocyte Esterase Neg (Negative) 06/05/19 04:30 < 1.0 /HPF (0.0-6.0) 06/05/19 04:30 1.0 /HPF (0.0-6.0) 06/05/19 04:30 U Epithel Cells (Auto) 2.0 /HPF (0-13.0) 06/04/19 23:00 1+ /HPF (Negative) 06/04/19 23:00 Few /HPF 06/04/19 23:00 Active Medications - Current Medications Current Medications: Generic Name Dose Route Start Last Admin Trade Name Freq PRN Reason Stop Dose Admin Acetaminophen 650 mg 06/05/19 04:07 06/05/19 21:51 Tylenol PO 650 mg Q4H PRN Administration Headache Acetaminophen/Hydrocodone Bitart 2 each 06/05/19 03:51 06/06/19 05:03 [place] 5/325 PO 2 each Q6H PRN Administration Pain, Moderate (4-6) Amoxicillin/Clavulanate Potassium 1 each 06/05/19 22:00 06/06/19 10:04 Augmentin 875 Mg PO 1 each Q12HR VÍCTOR Administration Aspirin 325 mg 06/05/19 10:00 06/06/19 10:04 Aspirin PO 325 mg QDAY VÍCTOR Administration Magnesium Sulfate 40 gm in 1,000 mls @ 50 mls/hr 06/05/19 04:00 06/06/19 02:36 Magnesium Sulfate 40gm/1000ml IV 2 gm/hr DIRECT VÍCTOR 50 mls/hr Administration 2 GM/HR Lactated Ringer's 1,000 mls @ 75 mls/hr 06/05/19 05:00 06/05/19 03:18 Lactated Ringers IV 75 mls/hr DIRECT VÍCTOR Administration Morphine Sulfate 2 mg 06/04/19 22:19 06/05/19 07:12 Morphine IV 2 mg Q4H PRN Administration Pain, Moderate (4-6) Multi-Ingredient Ointment 1 applic 06/05/19 03:58 [place] TP PRN PRN dryness/cracking Naloxone HCl 0.1 mg 06/05/19 03:58 Narcan 0.4 Mg/1 Ml IV Q2MIN PRN Res Rate </= 8 or 02 SAT < 92% Nifedipine 60 mg 06/06/19 14:00 06/06/19 14:57 Procardia Xl PO 60 mg QDAY VÍCTOR Administration Ondansetron HCl 4 mg 06/04/19 22:19 06/05/19 02:00 Zofran IV 4 mg Q8H PRN Administration Nausea And Vomiting
[2019-06-06] MEDS ORDERED: SENOKOT PO PRN (19:01)
[2019-06-06] MEDS ORDERED: MILK OF MAGNESIA PO ONE (20:09)
[2019-06-06] MEDS ORDERED: DULCOLAX PR ONE (20:16)
[2019-06-06 23:12] VITALS: BP 134/87
--- NOTE | 2019-06-08 11:44 | Cat Scan Report ---
CTA chest with contrast INDICATION : Acute generalized chest pain and dyspnea. TECHNIQUE: Axial imaging performed through the chest, with contrast bolus timing set to maximize opa cification of the pulmonary arteries. 3-plane MIP reformatted images were obtained. All CT scans at this location are performed using CT dose reduction for ALARA by means of automated exposure control. 100 mL of intravenous contrast administered. COMPARISON: CT chest from 06/03/2015 FINDINGS: Bolus: Contrast bolus timing is adequate. PTE: No filling defect is present to suggest PTE. Mediastinum: Heart and great vessels appear normal. No pathologic mediastinal adenopathy. Lungs: Stable subpleural nodular density in the left lung base. Otherwise clear lungs. Upper abdomen: Limited imaging of the upper abdomen shows nothing acute. Bones: Degenerative changes in the spine with nothing acute. IMPRESSION: Negative for PTE. Stable subpleural nodular density in the left lung base since 2014. Oth erwise clear lungs. Signer Name: Orlin Haque MD Signed: 06/05/2019 1:46 AM Workstation Name: [id number]
== END 2019-06-06 23:10 | disposition home or self-care (01) | DRG 776 ==
LOC: ED 19:37 → LD 06-05 00:42 → OB 06-06 14:44
PROVIDERS: ADMIT Obstetrics & Gynecology; ATTEND Obstetrics & Gynecology
DX: O14.95 Unspecified pre-eclampsia, complicating the puerperium (principal); I16.1 Hypertensive emergency; O90.89 Other complications of the puerperium, not elsewhere classified; K59.00 Constipation, unspecified; R07.89 Other chest pain; O99.89 Other specified diseases and conditions complicating pregnancy, childbirth and the puerperium; R00.1 Bradycardia, unspecified; O99.63 Diseases of the digestive system complicating the puerperium; O99.53 Diseases of the respiratory system complicating the puerperium; O90.81 Anemia of the puerperium; D50.9 Iron deficiency anemia, unspecified; J32.9 Chronic sinusitis, unspecified; Z87.891 Personal history of nicotine dependence
CPT/HCPCS: 36415; 71046; 71275; 80053; 81001; 82550; 82553; 82565; 83615; 83735; 83880; 84443; 84450; 84460; 84484; 84550; 85025; 85379; 85610; 85730; 93005; 93010; 93306; 96365; 96366; G0378; J0360; J2270; J2405; J3475; J7120; Q9967